=== PATIENT | female | born 1965 | race Caucasian/White ===

== ENCOUNTER 2020-05-22 08:00 | Outpatient (RCR) | payer OTHER, SELFPAY | END 2020-06-18 11:12 | disposition other institution (70) | LOC: HO.PT 08:00 | PROVIDERS: PCP Physician Assistant; Visit Provider Physician Assistant | DX: M54.5 Low back pain (principal); M54.2 Cervicalgia; M25.519 Pain in unspecified shoulder | CPT/HCPCS: 97014; 97110; 97140; 97162 ==

== ENCOUNTER 2020-05-25 12:02 | Emergency (ER) | payer OTHER, SELFPAY ==
--- NOTE | ~2020-05-25 | US_ITS ---
EXAMINATION: US ABDOMEN COMPLETE CLINICAL INFORMATION: Right upper quadrant pain. COMPARISON: None TECHNIQUE: Real-time imaging of the abdominal viscera. FINDINGS: PANCREAS: The pancreas could not be seen as it was obscured by bowel gas. ABDOMINAL AORTA: The proximal and mid segments are normal in caliber. Distal aorta was obscured by bowel gas INFERIOR VENA CAVA: Visualized portions are normal. LIVER: Normal. The liver is normal in size. The liver contour is normal. Parenchymal echogenicity is normal. No focal hepatic lesion. There is no intrahepatic biliary duct dilatation seen. GALLBLADDER: The gallbladder is physiologically distended. Multiple mobile gallstones are present. No evidence of gallbladder wall thickening or pericholecystic fluid. According to the tire adjuster, the patient was tender when palpation was performed with the ultrasound probe over the area of the gallbladder. COMMON BILE DUCT: Normal in caliber measuring 0.4 cm in diameter. RIGHT KIDNEY: No hydronephrosis. No renal calculi or focal parenchymal lesions. The kidney measures 10.5 cm in maximum dimension. LEFT KIDNEY: No hydronephrosis. No renal calculi or focal parenchymal lesions. The kidney measures 10.0 cm in maximum dimension. SPLEEN: Normal. The spleen measures 7.7 cm in maximum dimension. FREE FLUID: None. US/US abdomen complete IMPRESSION: Cholelithiasis with some tenderness over the gallbladder. No gallbladder wall thickening or pericholecystic fluid collections.
[2020-05-25 12:55] VITALS: BP 128/79; PULSE 68; RESP 18; TEMP 36.8; O2SAT 98; BMI 35.1
[2020-05-25 14:27] LABS: MANUAL DIFF FLAG NO
[2020-05-25 14:29] LABS: Basophils Percent Auto 0.5 % (0-2); Eosinophils Absolute Auto 0.2 X10*3/uL (0.0-0.4); Eosinophils Percent Auto 3.4 % (0-4); Hemoglobin 13.9 g/dl (12.0-16.0); Imm Gran Abs Auto 0.01 X10*3/uL (0.00-0.03); Imm Gran Pct Auto 0.2 % (0.0-0.4); Lymphocytes Absolute Auto 1.6 X10*3/uL (1.2-4.9); Lymphocytes Percent Auto 25.4 % (20-40); Mean Corpuscular HGB Conc 33.9 g/dl (31.0-35.0); Mean Corpuscular Hemoglobin 28.5 pg (27.0-33.0); Monocytes Absolute Auto 0.5 X10*3/uL (0.1-1.2); Monocytes Percent Auto 7.6 % (2-11); Neutrophils Absolute Auto 3.9 X10*3/uL (2.0-8.3); Neutrophils Percent Auto 62.9 % (45-73); Platelet Count 249 X10*3/uL (160-400); Red Blood Count 4.88 X10*6/uL (4.20-5.50); Red Cell Distribution Width 12.8 % (11.0-16.0); White Blood Count 6.2 X10*3/uL (4.8-10.8)
[2020-05-25 14:31] VITALS: BP 129/83; PULSE 57; RESP 18; O2SAT 99
--- NOTE | 2020-05-25 14:33 | PC.NURSE ---
pt resting in the stretcher, alert and oriented, skin appropriate for ethnicity, pt reports feeling swollen/bloated in her right flank area.
[2020-05-25 14:35] LABS: Prothrombin Time 12.1 SEC (10.8-13.0)
--- NOTE | 2020-05-25 14:45 | ED.ABDPAIN ---
HPI - Abdominal Pain General Chief Complaint: Recheck/Abnormal Lab/Rx Stated Complaint: abnormal ultrasound Time Seen by Provider: 05/25/20 13:04 Source: patient Mode of arrival: ambulatory Limitations: language barrier (Bangladeshi-speaking) History of Present Illness HPI narrative: 54-year-old female with a past medical history of seizure disorder, Meniere disease, hypothyroidism, hypoglycemia, vertigo, pulmonary nodules, asthma and GERD presenting to the ED with complaints of right upper quadrant/epigastric abdominal pain for the past week with associated nausea/vomiting. Reports that she was seen by her primary care provider and had an outpatient ultrasound and was told that she had multiple gallstones and was instructed to go to [facility]. Patient reports she went to [facility] on 05/23/2020 and sat there for 7 hours and was never seen by provider although had an ultrasound which showed cholecystitis per patient. She reported that because no one came to see her she ended up leaving without being seen. Although she reports she called her primary care provider today and they instructed her from [facility] to come here for further evaluation treatment and admission. MD elicited complaint: abdominal pain Pertinent past history: none Onset (ago): week(s) (One week worse today) Pain Consistency: constant Location: epigastric and RUQ Severity: moderate Quality: aching Radiation: none Migration to: no migration Exacerbating factors: nothing Relieving factors: nothing Associated symptoms: nausea and vomiting Related Data Previous Rx's Medication Instructions Recorded acetaminophen-codeine 1 tab PO Q8H PRN #10 tab 05/25/20 ondansetron HCl [Zofran] 4 mg PO Q8H PRN #14 tab 05/25/20 Allergies Allergy/AdvReac Type Severity Reaction Status Date / Time moxifloxacin [From AVELOX] Allergy Severe ANAPHYLAXIS Verified 05/25/20 13:00 Iodinated Contrast Media Allergy Unknown UNKNOWN Verified 05/25/20 13:00 [IV CONTRAST] naproxen [NAPROXEN] Allergy Unknown VOMITTING Verified 05/25/20 13:00 Review of Systems Review of Systems Constitutional : No Weight loss, No Fever, No Chills, No Night Sweats, No Fatigue, NoMalaise ENT/Mouth: No ear pain, No sore throat, No Difficulty swallowing Cardiovascular : No Chest Pain, No SOB, No Dyspnea on Exertion, No Orthopnea, NoEdema, No Palpitations Respiratory : No Cough, No Sputum, No Wheezing, No Dyspnea Gastrointestinal : + Nausea, + Vomiting, + Abdominal pain, No Diarrhea, No Hematochezia, No Melena Genitourinary : No irregular bleeding, No Dysuria, No Urinary Frequency, No Hematuria,No Urinary Incontinence, No Urgency, No Flank Pain Musculoskeletal : No joint pain, No Myalgias, No Joint Swelling Skin : No Skin Lesions, No rash Neuro : No Weakness, No Numbness, No Paresthesias, No Loss of Consciousness, NoDizziness, No Headache Psych : No Social Issues, Heme/Lymph: No Bruising, No Bleeding,No Lymphadenopathy Endocrine : No Polyuria, No Polydipsia, No Temperature Intolerance Yes all other systems are reviewed and are negative Physical Exam Vital Signs: Vital Signs: Last Vital Signs Temp 98.3 F 05/25/20 12:55 Pulse 57 05/25/20 14:31 Resp 18 05/25/20 14:31 BP 129/83 05/25/20 14:31 Pulse Ox 99 05/25/20 14:31 Body Mass Index 35.1 vital signs have been reviewed as normal and appeared to be correct. Blood pressure normal. Heart rate normal. Respiration rate normal. Temperature normal. Oxygen saturation normal. Appearance: Alert. Oriented X3. No acute distress. Head: Normal external exam. Normocephalic. Eyes: PERRLA. EOMI. Conjunctiva and sclera normal. Eyelids normal. ENT: Pharynx normal. Uvula midline. Moist mucous membranes. No trismus noted. No drooling noted. No muffled voice noted. Neck: Normal inspection. Neck supple. FROM. No adenopathy. No meningeal signs. CVS: Normal heart rate and rhythm. Heart sound normal. No murmurs noted. Pulses normal throughout. Respiratory: No respiratory distress. Painless inspiration. Breath sounds normal. No wheezes/rales/rhonchi noted. Chest nontender. No accessory muscle usage noted or decreased air movement noted. Abdomen: Soft and moderate tenderness to palpation to epigastric/right upper quadrant positive Meade sign.. Nondistended. No guarding. No rigidity. Bowel sounds normal in all 4 quadrants. No distention noted. No organomegaly noted. No visible injury noted. No rebound tenderness. Negative Rovsing sign. Negative obturator's sign. Negative psoas sign. Back: No CVA tenderness. Full range of motion noted. Skin: Skin warm and dry. Normal skin color. Normal skin turgor. No rashes/lesions/lacerations noted. Extremities: Extremities exhibit normal range of motion. Extremities nontender. Neuro: Oriented X 3. No motor deficit. No sensory deficit. Reflexes normal. Course Course Course Narrative: 3:20pm - 54-year-old female with a past medical history of seizure disorder, Meniere disease, hypothyroidism, hypoglycemia, vertigo, pulmonary nodules, asthma and GERD presenting to the ED with complaints of right upper quadrant/epigastric abdominal pain for the past week with associated nausea/vomiting. - on exam patient is alert and oriented x3. Not in any acute distress. Nontoxic appearing. No signs of dehydration. Abdomen is soft although patient with moderate tenderness to right upper quadrant/epigastric abdominal pain with positive Meade sign. - I obtained the ultrasound results from [facility] which revealed cholelithiasis with a positive Meade side negative for cholecystitis. - labs obtained all WNL including lipase. - abdominal ultrasound obtained and revealed cholelithiasis with some tenderness over the gallbladder no gallbladder wall thickening or velvet cholecystic fluid collections - therefore I consulted with Dr. Ryan the general surgeon and she reported that the patient can be sent home with outpatient Zofran and symptomatic treatment along with follow-up appointment on Wednesday in her office. I printed out the report from [facility] and from today's ultrasound and handed to the patient. I called the patient's daughter with the patient at bedside and explained to her what the plan was and they are both agreeable to the plan. Patient is tolerating p.o. fluids/solids. Therefore will DC home with Tylenol with codeine as patient does not want anything stronger and Motrin along with Zofran and instructions to follow-up with Dr. Ryan in the office on Wednesday. The patient also wanted to make healthcare proxy therefore will place a case management and they can call her over the phone for healthcare proxy. Patient understands and agrees with this plan. MDM - Abdominal Pain Medical Records Attestation: I reviewed the patient's medical records. Lab Data Attestation: I reviewed the patient's lab results. Result diagrams: 05/25/20 14:18 05/25/20 14:19 Labs: Lab Results 0205/25/20 05/25/20 Range/Units 14:18 14:18 14:19 WBC 6.2 (4.8-10.8) X10*3/uL RBC 4.88 (4.20-5.50) X10*6/uL Hgb 13.9 (12.0-16.0) g/dl Hct 41.0 (37-47) % MCV 84.0 (80-98) fL MCH 28.5 (27.0-33.0) pg MCHC 33.9 (31.0-35.0) g/dl RDW 12.8 (11.0-16.0) % Plt Count 249 (160-400) X10*3/uL MPV 11.0 (9.4-12.3) fL Immature Gran % (Auto) 0.2 (0.0-0.4) % Neut % (Auto) 62.9 (45-73) % Lymph % (Auto) 25.4 (20-40) % [place] % (Auto) 7.6 (2-11) % Eos % (Auto) 3.4 (0-4) % Baso % (Auto) 0.5 (0-2) % Lymph # (Auto) 1.6 (1.2-4.9) X10*3/uL [place] # (Auto) 0.5 (0.1-1.2) X10*3/uL Eos # (Auto) 0.2 (0.0-0.4) X10*3/uL Baso # (Auto) 0.0 (0.0-0.2) X10*3/uL Abs Immat Gran (auto) 0.01 (0.00-0.03) X10*3/uL Absolute Neuts (auto) 3.9 (2.0-8.3) X10*3/uL Absolute Nucleated RBC 0.000 (0.0-0.012) X10*3/uL Nucleated RBC % (auto) 0.0 (0.0-0.2) /100WBC PT 12.1 (10.8-13.0) SEC INR 1.0 (0.9-1.1) Sodium 143 (135-145) mmol/L Potassium 4.3 (3.3-5.1) mmol/L Chloride 108 (96-108) mmol/L Carbon Dioxide 28 (22-29) mmol/L Anion Gap 11 L (12-20) BUN 12 (9-16) mg/dL Creatinine 0.84 (0.5-1.4) mg/dL Estim Creat Clear Calc 69.4 Estimated GFR > 60 Random Glucose 79 (60-115) mg/dL Calcium 9.2 (8.4-10.2) mg/dL Magnesium 2.3 (1.6-2.6) mg/dL Total Bilirubin 0.4 (0.0-1.0) mg/dL Direct Bilirubin < 0.2 (0.0-0.5) mg/dL AST 16 (5-31) U/L ALT 21 (0-31) U/L Alkaline Phosphatase 79 (39-117) U/L Total Protein 7.0 (6.5-8.0) g/dL Albumin 4.2 (3.5-5.0) g/dL Lipase 31 (8-78) U/L Imaging Data Abdominal ultrasound: Attestation: I personally reviewed and interpreted this imaging study as follows: Radiologist's impression: FINDINGS: PANCREAS: The pancreas could not be seen as it was obscured by bowel gas. ABDOMINAL AORTA: The proximal and mid segments are normal in caliber. Distal aorta was obscured by bowel gas INFERIOR VENA CAVA: Visualized portions are normal. LIVER: Normal. The liver is normal in size. The liver contour is normal. Parenchymal echogenicity is normal. No focal hepatic lesion. There is no intrahepatic biliary duct dilatation seen. GALLBLADDER: The gallbladder is physiologically distended. Multiple mobile gallstones are present. No evidence of gallbladder wall thickening or pericholecystic fluid. According to the chemical preparer, the patient was tender when palpation was performed with the ultrasound probe over the area of the gallbladder. COMMON BILE DUCT: Normal in caliber measuring 0.4 cm in diameter. RIGHT KIDNEY: No hydronephrosis. No renal calculi or focal parenchymal lesions. The kidney measures 10.5 cm in maximum dimension. LEFT KIDNEY: No hydronephrosis. No renal calculi or focal parenchymal lesions. The kidney measures 10.0 cm in maximum dimension. SPLEEN: Normal. The spleen measures 7.7 cm in maximum dimension. FREE FLUID: None. US/US abdomen complete IMPRESSION: Cholelithiasis with some tenderness over the gallbladder. No gallbladder wall thickening or pericholecystic fluid collections. Discharge Plan Discharge Clinical Impression: Cholelithiasis Patient Disposition: Home, Self-Care Instructions: Gallstones (ED), Laparoscopic Cholecystectomy (DC), Open Cholecystectomy (DC) Prescriptions: New ondansetron HCl [Zofran] 4 mg tablet 4 mg PO Q8H PRN (Reason: nausea and vomiting) Qty: 14 RF: 0 acetaminophen-codeine 300-30 mg tablet 1 tab PO Q8H PRN (Reason: pain) Qty: 10 RF: 0 Referrals: Gilma Napier MD [Physician] - 3 days (Call on Wednesday to make an appointment; [facility] [facility] [employer] [facility]) Print Language: Bangladeshi [facility] Past Medical History Attestation statement: The following information was validated with the patient. Medical History Asthma GERD (gastroesophageal reflux disease) H/O multiple pulmonary nodules H/O vertigo Hypoglycemia Hypothyroid Meniere disease Seizure disorder Social History Social History Smoking Status: Never smoker Use of substances other than those prescribed or required for medical reasons: No Advance Directives: No Advance Directives Information Provided: Yes
[2020-05-25 15:02] LABS: Alanine Aminotransferase 21 U/L (0-31); Albumin Level 4.2 g/dL (3.5-5.0); Alkaline Phosphatase 79 U/L (39-117); Anion Gap 11 (12-20); Aspartate Amino Transferase 16 U/L (5-31); Bilirubin Direct < 0.2 mg/dL (0.0-0.5); Bilirubin Total 0.4 mg/dL (0.0-1.0); Blood Urea Nitrogen 12 mg/dL (9-16); Calcium 9.2 mg/dL (8.4-10.2); Carbon Dioxide 28 mmol/L (22-29); Chloride 108 mmol/L (96-108); Creatinine Clr Calc Pharmacy 69.4; Estimated Glomerular Filt Rate > 60; Glucose Random 79 mg/dL (60-115); Lipase 31 U/L (8-78); Magnesium 2.3 mg/dL (1.6-2.6); Potassium 4.3 mmol/L (3.3-5.1); Sodium 143 mmol/L (135-145)
[2020-05-25 15:21] LABS: Glucose Urine UA NEG (NEG); Leukocyte Esterase Urine TRACE (NEG); Nitrite Urine NEG (NEG); UACC Culture Trigger YES; Urine Blood NEG (NEG); Urine Ketones NEG (NEG); Urine Protein NEG (NEG-TRACE)
[2020-05-25 15:29] LABS: Appearance Urine CLEAR; Color Urine YELLOW
[2020-05-25 15:49] LABS: RBC Urine 0-2 /HPF (0); Squamous Epithelial Cell Urine 3+ /LPF; WBC Urine 0-2 /HPF (0-4)
== END 2020-05-25 15:40 | disposition home or self-care (01) ==
PROVIDERS: Physician Assistant Medical; Emergency Provider Emergency Medicine Emergency Medical Services; PCP Physician Assistant
DX: K80.20 Calculus of gallbladder without cholecystitis without obstruction (principal)
CPT/HCPCS: 36415; 76700; 80048; 80076; 81001; 81003; 83690; 83735; 85025; 85610; 87086; 99284

== ENCOUNTER → 2020-05-28 15:10 | Outpatient (BNVA) | payer OTHER, SELFPAY | PROVIDERS: PCP Internal Medicine; Visit Provider Surgery | DX: K80.20 Calculus of gallbladder without cholecystitis without obstruction (principal) | CPT/HCPCS: 99202 ==

== ENCOUNTER 2020-05-29 | Outpatient (REF) | payer OTHER, SELFPAY | END 2020-05-29 00:01 | disposition home or self-care (01) | LOC: HO.XRAY | PROVIDERS: Visit Provider Surgery | DX: Z01.818 Encounter for other preprocedural examination (principal); R06.02 Shortness of breath | CPT/HCPCS: 71046 ==

== ENCOUNTER 2020-06-05 06:02 | Day surgery (SDC) | payer OTHER, SELFPAY ==
--- NOTE | 2020-05-29 11:59 | ECG_ITS ---
Test Reason : SOB Blood Pressure : / mmHG Vent. Rate : 055 BPM Atrial Rate : 055 BPM P-R Int : 126 ms QRS Dur : 082 ms QT Int : 404 ms P-R-T Axes : 027 037 039 degrees QTc Int : 386 ms Sinus bradycardia Otherwise normal ECG When compared with ECG of 15-AUG-2018 17:41, No significant change was found Referred By: Gilma Napier Electronically Signed By:Juan Clark
[2020-05-29 12:55] LABS: Glucose Urine UA NEG (NEG); Leukocyte Esterase Urine NEG (NEG); Nitrite Urine NEG (NEG); PH 5.5 (5.0-8.0); Urine Blood TRACE (NEG); Urine Ketones NEG (NEG); Urine Protein NEG (NEG-TRACE)
[2020-05-29 12:58] LABS: Appearance Urine CLEAR; Color Urine YELLOW
[2020-05-29 13:10] LABS: RBC Urine 0-2 /HPF (0); Squamous Epithelial Cell Urine 1+ /LPF
[2020-05-29 13:11] LABS: Prothrombin Time 12.1 SEC (10.8-13.0)
[2020-05-29 13:14] LABS: Partial Thromboplastin Time 37.3 SEC (24.1-38.0)
[2020-05-30 10:39] VITALS: BMI 32.3
--- NOTE | 2020-06-04 11:05 | P.CONAN_ITS ---
Documented by User: Shi Marya 06/04/20 11:08 HPI - Anesthesia Eval Consult details Narrative: 54yo F for Cholecystectomy Laparoscopic PMFSH Active Problems Active Problems: All Active Problems (Updated 05/30/20 @ 10:50 by Lorelei Branham) Cholelithiasis (Acute) Preoperative examination (Acute) Shortness of breath (Acute) Seizure disorder (Acute) Meniere disease (Acute) Hypothyroid (Acute) Hypoglycemia (Acute) H/O vertigo (Acute) H/O multiple pulmonary nodules (Acute) GERD (gastroesophageal reflux disease) (Acute) Asthma (Acute) Past Medical History Medical History Anxiety and depression Asthma Difficulty maintaining body in lying position GERD (gastroesophageal reflux disease) H/O multiple pulmonary nodules H/O vertigo Hypoglycemia Hypothyroid Low back pain Meniere disease Nausea Neck pain Panic attacks Seizure disorder Family History Family History Father Hypertension High cholesterol Dementia Blind Mother Hypertension Diabetes mellitus High cholesterol Chronic kidney disease Sister Hypertension Diabetes mellitus Hx laparoscopic cholecystectomy Asthma Sister High cholesterol Hypertension FH: kidney cancer Sister Vertigo Brother No problems noted. Brother Brain tumor Epilepsia Daughter Hypoglycemia Vertigo Asthma Meniere disease Son Asthma Migraine Gastritis Surgical History Surgical History Hx of appendectomy Hx of section Social History Social History Alcohol intake: never Smoking Status: Never smoker Use of substances other than those prescribed or required for medical reasons: No Advance Directives: No Advance Directives Information Provided: No Advance Directives on File: No Meds Allergies Allergy/AdvReac Type Severity Reaction Status Date / Time Iodinated Contrast Media Allergy Severe Anaphylaxis Verified 06/05/20 06:30 [IV CONTRAST] moxifloxacin [From AVELOX] Allergy Severe ANAPHYLAXIS Verified 06/05/20 06:30 naproxen [NAPROXEN] Allergy Severe VOMITTING Verified 06/05/20 06:30 Home Medications Medication Instructions Recorded Confirmed Last Taken Type albuterol sulfate 2.5 mg INHALATION Q4-6H PRN 05/28/20 05/30/20 Unknown History albuterol sulfate 90 mcg/actuation 2 puff INHALATION Q4H PRN 05/28/20 05/30/20 Unknown History aerosol inhaler blood sugar diagnostic #10 ea 05/28/20 05/28/20 Unknown History clonazepam 0.5 mg tablet 0.5 mg PO BEDTIME PRN 05/28/20 05/30/20 Unknown History dicyclomine 20 mg tablet 20 mg PO Q8H 05/28/20 05/30/20 Unknown History levetiracetam 500 mg tablet 500 mg PO BID 05/28/20 05/30/20 06/05/20 05:30 History levothyroxine 50 mcg tablet 50 mcg PO DAILY 05/28/20 05/30/20 Unknown History lorazepam 1 mg tablet 1 mg PO DAILY PRN 05/28/20 05/30/20 Unknown History meclizine 12.5 mg tablet 12.5 mg PO DAILY PRN 05/28/20 05/30/20 Unknown History mirtazapine 15 mg tablet 15 mg PO BEDTIME 05/28/20 05/30/20 Unknown History omeprazole 20 mg capsule,delayed 20 mg PO DAILY 05/28/20 05/30/20 Unknown History release amitriptyline 1 tab PO BEDTIME 06/05/20 06/05/20 Unknown History diclofenac sodium 1 g TOPICAL BID 06/05/20 06/05/20 Unknown History hydroxyzine HCl tab PO 06/05/20 06/05/20 Unknown History ibuprofen 600 mg PO TID 06/05/20 06/05/20 Unknown History methocarbamol 1 tab PO TID PRN 06/05/20 06/05/20 Unknown History Exam Exam Date and Time: June 04, 2020 1105 Height,Weight and Vital Signs: Height 4 ft 11 in Weight 72.575 kg Pertinent Lab Results Pertinent Lab Results: Laboratory Tests 05/29/20 05/29/20 05/29/20 12:07 12:15 Unknown PT 12.1 INR 1.0 APTT 37.3 Urine Color YELLOW Urine Appearance CLEAR Urine pH 5.5 Ur Specific [place] 1.010 Urine Protein NEG Urine Glucose (UA) NEG Urine Ketones NEG Urine Blood TRACE Urine Nitrite NEG Ur Leukocyte Esterase NEG Urine RBC 0-2 Urine WBC 1-4 Ur Squamous Epith Cells 1+ Urine Bacteria NONE Blood Type A Positive Antibody Screen NEGATIVE Laboratory Tests 05/25/20 05/25/20 14:18 14:19 WBC 6.2 Hgb 13.9 Hct 41.0 Plt Count 249 Sodium 143 Potassium 4.3 Chloride 108 Carbon Dioxide 28 BUN 12 Creatinine 0.84 Narrative Narrative: EKG 05/28/20 Sinus bradycardia Otherwise normal ECG When compared with ECG of 15-AUG-2018 17:41, No significant change was found Assessment and Plan Assessment Anesthesia Assessment: Chart Reviewed Documented by User: Lorena Berman 06/05/20 07:35 PMFSH Past Medical History Medical History Anxiety and depression Asthma Difficulty maintaining body in lying position GERD (gastroesophageal reflux disease) H/O multiple pulmonary nodules H/O vertigo Hypoglycemia Hypothyroid Low back pain Meniere disease Nausea Neck pain Panic attacks Seizure disorder Family History Family History Father Hypertension High cholesterol Dementia Blind Mother Hypertension Diabetes mellitus High cholesterol Chronic kidney disease Sister Hypertension Diabetes mellitus Hx laparoscopic cholecystectomy Asthma Sister High cholesterol Hypertension FH: kidney cancer Sister Vertigo Brother No problems noted. Brother Brain tumor Epilepsia Daughter Hypoglycemia Vertigo Asthma Meniere disease Son Asthma Migraine Gastritis Family history of problems with anesthesia: No Surgical History Surgical History Hx of appendectomy Hx of section History of Problems with Anesthesia: No Social History Social History Alcohol intake: never Smoking Status: Never smoker Use of substances other than those prescribed or required for medical reasons: No Advance Directives: No Advance Directives Information Provided: No Advance Directives on File: No Meds Allergies Allergy/AdvReac Type Severity Reaction Status Date / Time Iodinated Contrast Media Allergy Severe Anaphylaxis Verified 06/05/20 06:30 [IV CONTRAST] moxifloxacin [From AVELOX] Allergy Severe ANAPHYLAXIS Verified 06/05/20 06:30 naproxen [NAPROXEN] Allergy Severe VOMITTING Verified 06/05/20 06:30 Home Medications Medication Instructions Recorded Confirmed Last Taken Type albuterol sulfate 2.5 mg INHALATION Q4-6H PRN 05/28/20 05/30/20 Unknown History albuterol sulfate 90 mcg/actuation 2 puff INHALATION Q4H PRN 05/28/20 05/30/20 Unknown History aerosol inhaler blood sugar diagnostic #10 ea 05/28/20 05/28/20 Unknown History clonazepam 0.5 mg tablet 0.5 mg PO BEDTIME PRN 05/28/20 05/30/20 Unknown History dicyclomine 20 mg tablet 20 mg PO Q8H 05/28/20 05/30/20 Unknown History levetiracetam 500 mg tablet 500 mg PO BID 05/28/20 05/30/20 06/05/20 05:30 History levothyroxine 50 mcg tablet 50 mcg PO DAILY 05/28/20 05/30/20 Unknown History lorazepam 1 mg tablet 1 mg PO DAILY PRN 05/28/20 05/30/20 Unknown History meclizine 12.5 mg tablet 12.5 mg PO DAILY PRN 05/28/20 05/30/20 Unknown History mirtazapine 15 mg tablet 15 mg PO BEDTIME 05/28/20 05/30/20 Unknown History omeprazole 20 mg capsule,delayed 20 mg PO DAILY 05/28/20 05/30/20 Unknown History release amitriptyline 1 tab PO BEDTIME 06/05/20 06/05/20 Unknown History diclofenac sodium 1 g TOPICAL BID 06/05/20 06/05/20 Unknown History hydroxyzine HCl tab PO 06/05/20 06/05/20 Unknown History ibuprofen 600 mg PO TID 06/05/20 06/05/20 Unknown History methocarbamol 1 tab PO TID PRN 06/05/20 06/05/20 Unknown History Exam Height,Weight and Vital Signs: Vital Signs Temp Pulse Resp BP Pulse Ox 06/05/20 06:31 97.8 F 64 16 112/89 99 Pertinent Lab Results Pertinent Lab Results: POC 06/05/2020: 79 Airway Mallampati Class: II TM Dist: >3cm Neck ROM: Full Loose/Missing/Broken Teeth: No (?Veneers ) Heart: RRR Lungs: CTAB Assessment and Plan Assessment Anesthesia Assessment: Anesthesia Plan Discussed and Chart Reviewed Final Anesthetic Review NPO: Yes ASA Class: III Final Preanesthetic Review: No Changes in Pt Med Stat, Meds/Allgs Chart Reviewed, Consent Obtained/Reviewed and Anes Risks/Benef Reviewed Patient Risk: Intermediate Procedure Risk: Intermediate Assessment/Block/Sedation in SS: Assess/Block/Sedation-SS Anesthetic Plan Anesthetic Plan: GA (Does not want 'strong' pain medications. 'Afraid' of them. Tylenol with codeine ok but does not want percocet. ) Disposition: Standard PACU
--- NOTE | 2020-06-04 16:21 | MHC.SHP ---
Pre-Procedural Eval Section B Chief Complaint: calculus of gallbladder Allergies: Allergies Allergy/AdvReac Type Severity Reaction Status Date / Time Iodinated Contrast Media Allergy Severe Anaphylaxis Verified 05/30/20 10:34 [IV CONTRAST] moxifloxacin [From AVELOX] Allergy Severe ANAPHYLAXIS Verified 05/30/20 10:34 naproxen [NAPROXEN] Allergy Severe VOMITTING Verified 05/30/20 10:34 Plan I have reviewed the history and physical and performed a pertinent physical examination on my patient. No changes have occurred unless specified.
[2020-06-05] VITALS (18 sets, daily range): BP systolic 112–153; BP diastolic 59–106; PULSE 63–94; RESP 16–18; TEMP 36–36.9; O2SAT 93–99
--- NOTE | ~2020-06-05 | XR_ITS ---
EXAMINATION: XR CHEST CLINICAL INFORMATION: Shortness of breath COMPARISON: Chest radiographs 08/15/2018, 09/27/2017 TECHNIQUE: 2 views of the chest were obtained. FINDINGS: The lungs are clear. The vascularity is normal. The heart is normal in size. There is no airspace consolidation, groundglass opacity, or effusion. No pneumothorax or pleural reaction. The hilar and mediastinal contours are unremarkable. No visible acute bony abnormality. XR/XR chest 2V IMPRESSION: Lungs clear.
[2020-06-05] MEDS: Lactated Ringers 1,000 ML 100 ML IVCONT (06:54)
[2020-06-05 07:00] LABS: COVID-19 Test Negative (Negative)
[2020-06-05 07:30] LABS: Glucose, Whole Blood 79 mg/dL (60-115)
[2020-06-05] MEDS: fentaNYL citrate/PF 100 MCG/2 ML VIAL 25 MCG IVPUSH ×3 (09:42→09:57)
--- NOTE | 2020-06-05 09:47 | PM.OP ---
Brief Operative Note Date of Service: 06/05/20 Pre-op diagnosis: Cholelithiasis, biliary colic Post-op diagnosis: same Procedure: Laparoscopic cholecystectomy Implants: Surgical clips Surgeon: Gilma Napier MD Anesthesia: GETA [employer] Specialist: Lesvia Lujan Estimated blood loss (mL): 50 Pathology: other (Gallbladder) Condition: stable Disposition: PACU
--- NOTE | 2020-06-05 09:48 | W.PM.OPN ---
Operative Note Operative Note Date of Service: 06/05/20 Narrative: Patient was brought into the operating room, placed on operating table in the supine position. Normal DVT prophylaxis was instituted. Patient received 2 g of IV cefotetan preoperatively. General anesthesia was induced. The abdomen was prepped and draped in the normal sterile fashion using ChloraPrep. A safety time-out was performed. Next a mixture of 1% lidocaine with epinephrine and 0.25% Marcaine plain was used to anesthetize the planned incision site in the infraumbilical position. A 11. Scalpel was used to make a 2 cm infraumbilical transverse surgical incision through which the subcutaneous tissues were dissected down to level the fascia. The fascia was grasped did between 2 Tito clamps and entered using a 11. Scalpel for about 1 cm vertically. An 0 Vicryl suture was placed on either side of the open fascia. A finger was used to bluntly gain access to the intra-abdominal cavity. A 12 mm Lockwood trocar was introduced into the abdomen and secured to the abdominal wall using sutures on the fascia. The abdomen was insufflated to 15 mmHg. Next a 5 mm 30 degree laparoscoped was introduced into the abdomen and used to survey the abdominal cavity which was normal. Next 3 additional 5 mm ports were placed. One port was placed in the epigastrium to the right of the falciform ligament, 2 ports were placed in the right upper quadrant 1 laterally and 1 more medially. The patient was placed in reverse Trendelenburg and left side tilted down. A grasper was placed through the right lateral port and used to grasp the fundus of the gallbladder and retracted it cephalad. Another grasper was used to grasp the infundibulum of the gallbladder retracted inferior and laterally. We cleared the cystic artery and cystic duct circumferentially and the distal 1/3 of the gallbladder with the gallbladder fossa. This gave us the critical view of safety. We then placed 3 clips on the cystic duct distal to the gallbladder 1 clip on the cystic duct proximal to the gallbladder. We placed 1 clip on the cystic artery proximal to the gallbladder and 3 clips on the cystic artery distal to the gallbladder and transected both structures in between clips. We took the remainder of the gallbladder off the gallbladder fossa and placed in Endo-Catch bag and removed it from the abdomen. We then evaluated the gallbladder fossa it was hemostatic there was no evidence of any bile draining or any bleeding noted. The clips were in place on the cystic artery and cystic duct stumps. We then removed the 5 mm ports under direct vision there was no bleeding noted from these port sites. We desufflated the abdomen through the last remaining port and removed the last port and laparoscope. We reapproximated the fascial defect at the umbilicus using a [id number] 0 Vicryl suture and tied the original fascial sutures over that closure. There was no residual fascial defect. We placed an additional amount of local anesthetic into the fascia closure site. We closed all skin incisions with a 4 Monocryl subcuticular stitch. We cleaned and dried the skin and applied Dermabond skin glue to all skin incisions. All counts were correct at the end the case there were no complications. The patient was awake and in stable condition prior to extubation and transfer to the recovery room.
[2020-06-05] MEDS: traMADoL HCL 50 MG TABLET PO (10:24)
[2020-06-05] MEDS: ondansetron HCL 4 MG/2 ML VIAL IVPUSH (10:31)
[2020-06-05 11:05] LABS: Glucose, Whole Blood 125 mg/dL (60-115)
--- NOTE | 2020-06-05 12:26 | PC.NURSE ---
Patient has Tylenol with Codeine at home per report. Discharge instructions [place] [facility] [place]
== END 2020-06-05 12:28 | disposition home or self-care (01) ==
PROVIDERS: PCP Physician Assistant; Visit Provider Surgery
PROC: 0FT44ZZ Resection of Gallbladder, Percutaneous Endoscopic Approach (ICD-10-PCS; CPT 47562; principal; 2020-06-05 07:30)
DX: K80.10 Calculus of gallbladder with chronic cholecystitis without obstruction (principal); R06.02 Shortness of breath; E16.2 Hypoglycemia, unspecified; G40.909 Epilepsy, unspecified, not intractable, without status epilepticus; Z79.899 Other long term (current) drug therapy; Z88.8 Allergy status to other drugs, medicaments and biological substances
CPT/HCPCS: 47562; 36415; 81001; 82947; 85610; 85730; 86850; 86900; 86901; 87635; 88304; 93005; J0131; J1100; J2250; J2370; J2405; J3010

== ENCOUNTER → 2020-06-20 12:59 | Outpatient (BNVA) | payer OTHER, SELFPAY | PROVIDERS: PCP Physician Assistant; Visit Provider Surgery | DX: Z90.49 Acquired absence of other specified parts of digestive tract (principal) | CPT/HCPCS: 99212 ==

== ENCOUNTER 2020-07-30 11:00 | Outpatient (RCR) | payer OTHER, SELFPAY | END 2020-10-02 09:06 | disposition other institution (70) | LOC: HO.PT 11:00 | PROVIDERS: PCP Physician Assistant; Visit Provider Physician Assistant Medical | DX: M54.2 Cervicalgia (principal); M54.9 Dorsalgia, unspecified; M25.512 Pain in left shoulder; M25.511 Pain in right shoulder | CPT/HCPCS: 97110; 97140; 97162 ==

== ENCOUNTER 2021-01-24 17:14 | Emergency (ER) | payer OTHER, SELFPAY | END 2021-01-24 21:00 | disposition left against medical advice (07) | LOC: HO.ED 20:57 | PROVIDERS: Emergency Provider Emergency Medicine; PCP Internal Medicine | DX: G89.18 Other acute postprocedural pain (principal) ==

== ENCOUNTER 2021-01-25 08:44 | Emergency (ER) | payer OTHER, SELFPAY ==
--- NOTE | ~2021-01-25 | CT_ITS ---
CT/CT abdomen pelvis wo con IMPRESSION: 1. Mesenteric haziness demonstrated within the mid left abdomen with a few associated mildly prominent lymph nodes. This is a nonspecific finding but most suggestive of mesenteric panniculitis. Clinical correlation recommended. 2. Diffusely decreased liver attenuation suggesting hepatic steatosis. Correlation with liver enzymes recommended. EXAMINATION: CT ABDOMEN AND PELVIS WITHOUT CONTRAST CLINICAL INFORMATION: 55-year-old female with right-sided flank pain. COMPARISON: Abdominal ultrasound May 25, [address] abdomen pelvis July 16, 2018 TECHNIQUE: Multidetector volumetric imaging was performed from the superior aspect of the liver through the pubic symphysis. Sagittal and coronal reformatted images were obtained on the technologist's workstation. This CT examination was performed using dose optimization techniques as appropriate, variously including the following: *Automated exposure control *Adjustment of mA and/or kV according to patient size (this includes techniques or standardized protocols for targeted exams where dose is matched to indication/reason for exam; i.e. extremities or head) *Use of iterative reconstruction technique DLP: 648 mGy-cm FINDINGS: Visualized lung bases demonstrate mild dependent patchy opacities, felt to represent atelectasis. The liver is normal in size but demonstrates diffusely decreased attenuation suggesting hepatic steatosis. The gallbladder is surgically absent. The pancreas, spleen and adrenal glands are unremarkable. Small splenule again identified. Symmetrically sized kidneys. No renal calculi or hydronephrosis bilaterally. There is mild yassine mesentery involving the left hemiabdomen with a few mildly prominent lymph nodes, nonspecific. Small fat-containing umbilical hernia is unchanged. Normal caliber abdominal aorta. No retroperitoneal lymphadenopathy. The bladder is normal in appearance. Unremarkable CT appearance of the uterus. No gross free pelvic fluid. No inguinal lymphadenopathy. Mild diffuse degenerative changes of the spine.
[2021-01-25 09:04] VITALS: BP 146/87; PULSE 71; RESP 16; TEMP 36.7; O2SAT 99; BMI 30.4
--- NOTE | 2021-01-25 09:25 | ED_ITS ---
HPI - Abdominal Pain General Chief Complaint: Abdominal Pain Stated Complaint: R SIDE PAIN Time Seen by Provider: 01/25/21 09:21 Source: patient and family (Daughter) Mode of arrival: ambulatory Limitations: no limitations History of Present Illness HPI narrative: 55-year-old female came in for evaluation of right flank pain. Symptoms started since yesterday after had lunch with right flank pain described as constant pain since yesterday radiating to the front of her right upper quadrant area. Pain was described as constant, severe 01/19 patient needed to take ibuprofen and left over of oxycodone at home, no relieving factors, no aggravating factors. Patient stated pain is similar when she had her acute ch olecystitis. No dysuria, no frequency urination, no blood in the urine. Patient had history of cholecystectomy 8 months ago, and remote appendectomy. No nausea, no vomiting, no diarrhea. No fever, no chills. Related Data Home Medications Medication Instructions Recorded Confirmed albuterol sulfate 2.5 mg INHALATION Q4-6H PRN 05/28/20 06/20/20 albuterol sulfate 90 mcg/actuation 2 puff INHALATION Q4H PRN 05/28/20 06/20/20 aerosol inhaler blood sugar diagnostic #10 ea 05/28/20 06/20/20 clonazepam 0.5 mg tablet 0.5 mg PO BEDTIME PRN 05/28/20 06/20/20 dicyclomine 20 mg tablet 20 mg PO Q8H 05/28/20 06/20/20 levetiracetam 500 mg tablet 500 mg PO BID 05/28/20 06/20/20 levothyroxine 50 mcg tablet 50 mcg PO DAILY 05/28/20 06/20/20 lorazepam 1 mg tablet 1 mg PO DAILY PRN 05/28/20 06/20/20 meclizine 12.5 mg tablet 12.5 mg PO DAILY PRN 05/28/20 06/20/20 mirtazapine 15 mg tablet 15 mg PO BEDTIME 05/28/20 06/20/20 omeprazole 20 mg capsule,delayed 20 mg PO DAILY 05/28/20 06/20/20 release amitriptyline 25 mg tablet 1 tab PO BEDTIME 06/05/20 06/20/20 diclofenac sodium 1 % topical gel 1 g TOPICAL BID 06/05/20 06/20/20 hydroxyzine HCl 25 mg tablet tab PO 06/05/20 06/20/20 ibuprofen 600 mg tablet 600 mg PO TID 06/05/20 06/20/20 methocarbamol 500 mg tablet 1 tab PO TID PRN 06/05/20 06/20/20 Previous Rx's Medication Instructions Recorded ondansetron HCl 4 mg tablet 4 mg PO Q8H PRN #14 tab 05/25/20 (Zofran) docusate sodium 100 mg capsule 100 mg PO BID #60 cap 06/05/20 (Colace) oxycodone 5 mg tablet 5 mg PO Q8H PRN #25 tab 06/05/20 nystatin 100,000 unit/mL oral 100,000 unit PO BID 7 Days #14 ml 06/11/20 suspension cefuroxime axetil 250 mg tablet 250 mg PO BID #14 tab 01/25/21 Allergies Allergy/AdvReac Type Severity Reaction Status Date / Time Iodinated Contrast Media Allergy Severe Anaphylaxis Verified 06/20/20 14:14 [IV CONTRAST] moxifloxacin [From AVELOX] Allergy Severe ANAPHYLAXIS Verified 06/20/20 14:14 naproxen [NAPROXEN] Allergy Severe VOMITTING Verified 06/20/20 14:14 Review of Systems Review of Systems All other systems are reviewed and are negative Constitutional: Reports as per HPI and Reports no additional constitutional complaints Eyes: Reports as per HPI and Reports no additional eye complaints Reports system reviewed and no additional complaints, except as documented Cardiovascular: Reports as per HPI and Reports no additional cardiovascular complaints Respiratory: Reports as per HPI and Reports no additional respiratory complaints Gastrointestinal: Reports as per HPI and Reports no additional gastrointestinal complaints Genitourinary: Reports no additional female genitourinary complaints Musculoskeletal: Reports no additional musculoskeletal complaints Skin/Breast: Reports system reviewed and no additional complaints, except as docu Psychiatric: Reports no additional psychiatric complaints Endocrine: Reports no additional endocrine complaints Hematologic/Lymphatic: Reports no additional hematologic/lymphatic complaints Allergic/Immunologic: Reports no additional allergic/immunologic complaints Reports system reviewed and no additional complaints, except as documented and Reports Abnormal speech present Physical Exam Vital Signs: Vital Signs: Last Vital Signs Temp 98.1 F 01/25/21 09:04 Pulse 58 01/25/21 10:00 Resp 18 01/25/21 10:00 BP 117/71 01/25/21 10:00 Pulse Ox 97 01/25/21 10:00 Body Mass Index 30.4 Vital signs have been reviewed as appeared to be correct. Blood pressure normal. Heart rate normal. Respiration rate normal. Temperature normal. Oxygen saturation normal. Appearance: Alert. Oriented X3. No acute distress. Head: Normal external exam. Normocephalic. Atraumatic. No Felix signs noted. No raccoon eyes noted Eyes: PERRLA. EOMI. Conjunctiva and sclera normal. Eyelids normal. ENT: TM's Normal. Pharynx normal. Uvula midline. Moist mucous membranes. No trismus noted. No drooling noted. No muffled voice noted. Neck: Normal inspection. Neck supple. FROM. No adenopathy. Thyroid Normal. No meningeal signs. No neck mass noted. CVS: Normal heart rate and rhythm. Heart sound normal. No murmurs noted. Pulses normal throughout. Respiratory: No respiratory distress. Painless inspiration. Breath sounds normal. No wheezes/rales/rhonchi noted. Chest nontender. No accessory muscle usage noted or decreased air movement noted. Abdomen: Soft, mild right upper quadrant tenderness, no rebound, no guarding. Bowel sounds normal in all 4 quadrants. No distention noted. No organomegaly noted. No visible injury noted. Back: Right CVA tenderness. Full range of motion noted. Skin: Skin warm and dry. Normal skin color. Normal skin turgor. No rashes/lesions/lacerations noted. Extremities: No lower extremity edema. Extremities exhibit normal range of mot ion. Extremities nontender. Neuro: Oriented X 3. Cranial nerve exam: II-XII are grossly intact No motor deficit. No sensory deficit. Reflexes normal. Course Course Course Narrative: Assessment and plan. 55-year-old female came in with right-sided abdominal pain for 1 day. Patient declined any nausea, vomiting, diarrhea, or fever. CT of the abdomen pelvis showed nonspecific lymphadenitis, patient was instructed to use NSAIDs if needed. Patient is only complaining of urinary frequency but no dysuria or urine older, UA show mild UTI will start the patient on cefuroxime 250 mg b.i.d. for 1 week, patient was instructed to drink plenty of fluids. MDM - Abdominal Pain Lab Data Attestation: I reviewed the patient's lab results. Result diagrams: 01/25/21 09:46 01/25/21 09:46 Labs: Lab Results 01/25/21 01/25/21 01/25/21 Range/Units 09:46 09:46 09:48 WBC 6.1 (4.8-10.8) X10*3/uL RBC 4.38 (4.20-5.50) X10*6/uL Hgb 12.6 (12.0-16.0) g/dl Hct 37.2 (37-47) % MCV 84.9 (80-98) fL MCH 28.8 (27.0-33.0) pg MCHC 33.9 (31.0-35.0) g/dl RDW 12.8 (11.0-16.0) % Plt Count 218 (160-400) X10*3/uL MPV 11.4 (9.4-12.3) fL Immature Gran % (Auto) 0.2 (0.0-0.4) % Neut % (Auto) 55.3 (45-73) % Lymph % (Auto) 27.1 (20-40) % Mitchell % (Auto) 11.9 H (2-11) % Eos % (Auto) 5.0 H (0-4) % Baso % (Auto) 0.5 (0-2) % Lymph # (Auto) 1.6 (1.2-4.9) X10*3/uL Mitchell # (Auto) 0.7 (0.1-1.2) X10*3/uL Eos # (Auto) 0.3 (0.0-0.4) X10*3/uL Baso # (Auto) 0.0 (0.0-0.2) X10*3/uL Abs Immat Gran (auto) 0.01 (0.00-0.03) X10*3/uL Absolute Neuts (auto) 3.4 (2.0-8.3) X10*3/uL Absolute Nucleated RBC 0.000 (0.0-0.012) X10*3/uL Nucleated RBC % (auto) 0.0 (0.0-0.2) /100WBC Sodium 141 (135-145) mmol/L Potassium 4.9 (3.3-5.1) mmol/L Chloride 111 H (96-108) mmol/L Carbon Dioxide 23 (22-29) mmol/L Anion Gap 12 (12-20) BUN 13 (9-16) mg/dL Creatinine 0.78 (0.5-1.4) mg/dL Estim Creat Clear Calc 68.5 Estimated GFR > 60 Random Glucose 94 (60-115) mg/dL Calcium 8.9 (8.4-10.2) mg/dL Total Bilirubin 0.4 (0.0-1.0) mg/dL Direct Bilirubin < 0.2 (0.0-0.5) mg/dL AST 23 D (5-31) U/L ALT 22 (0-31) U/L Alkaline Phosphatase 70 (39-117) U/L Total Protein 6.3 L (6.5-8.0) g/dL Albumin 3.7 (3.5-5.0) g/dL Lipase 33 (8-78) U/L Urine Color YELLOW Urine Appearance HAZY Urine pH 6.0 (5.0-8.0) Ur Specific Yoder 1.020 (1.005-1.025) Urine Protein NEG (NEG-TRACE) MG/DL Urine Glucose (UA) NEG (NEG) MG/DL Urine Ketones NEG (NEG) MG/DL Urine Blood NEG (NEG) Urine Nitrite NEG (NEG) Ur Leukocyte Esterase 2+ H (NEG) Urine RBC 0 (0) /HPF Urine WBC 10-14 H (0-4) /HPF Ur Squamous Epith Cells TRACE /LPF Ur Renal Epithelial Cell 1+ /LPF Urine Bacteria NONE /LPF Imaging Data CT scan - abdomen: Radiologist's impression: 1.? Mesenteric haziness demonstrated within the mid left abdomen with a few associated mildly prominent lymph nodes. This is a nonspecific finding but most suggestive of mesenteric panniculitis. Clinical correlation recommended. 2.? Diffusely decreased liver attenuation suggesting hepatic steatosis. Correlation with liver enzymes recommended.? Discharge Plan Discharge Clinical Impression: Mesenteric panniculitis Urinary tract infection Qualifiers: Urinary tract infection type: acute cystitis Hematuria presence: without hematuria Qualified Code(s): N30.00 - Acute cystitis without hematuria Patient Disposition: Home, Self-Care Instructions: Urinary Tract Infection in Women (ED), Mesenteric Adenitis (ED) Prescriptions: New cefuroxime axetil 250 mg tablet 250 mg PO BID Qty: 14 RF: 0 No Action oxycodone 5 mg tablet 5 mg PO Q8H PRN (Reason: pain) Qty: 25 RF: 0 nystatin 100,000 unit/mL suspension 100,000 unit PO BID 7 Days Qty: 14 RF: 0 methocarbamol 500 mg tablet 1 tab PO TID PRN (Reason: muscle spasm) RF: 0 amitriptyline 25 mg tablet 1 tab PO BEDTIME RF: 0 hydroxyzine HCl 25 mg tablet PO RF: 0 ibuprofen 600 mg Tablet 600 mg PO TID RF: 0 diclofenac sodium 1 % gel 1 g topical BID RF: 0 docusate sodium [Colace] 100 mg capsule 100 mg PO BID Qty: 60 RF: 0 ondansetron HCl [Zofran] 4 mg tablet 4 mg PO Q8H PRN (Reason: nausea and vomiting) Qty: 14 RF: 0 levothyroxine 50 mcg tablet 50 mcg PO DAILY RF: 0 omeprazole 20 mg capsule,delayed release(DR/EC) 20 mg PO DAILY RF: 0 meclizine 12.5 mg tablet 12.5 mg PO DAILY PRN (Reason: Vertigo) RF: 0 albuterol sulfate 90 mcg/actuation HFA aerosol inhaler 2 puff inhalation Q4H PRN (Reason: wheezing) RF: 0 levetiracetam 500 mg tablet 500 mg PO BID RF: 0 mirtazapine 15 mg tablet 15 mg PO BEDTIME RF: 0 (DME) blood sugar diagnostic Strip See Rx Instructions strip .ROUTE .MEDSUPPLY Qty: 10 RF: 0 lorazepam 1 mg tablet 1 mg PO DAILY PRN (Reason: Anxiety) RF: 0 clonazepam 0.5 mg tablet 0.5 mg PO BEDTIME PRN (Reason: Anxiety) RF: 0 dicyclomine 20 mg tablet 20 mg PO Q8H RF: 0 albuterol sulfate 2.5 mg /3 mL (0.083 %) solution for nebulization 2.5 mg inhalation Q4-6H PRN (Reason: Shortness Of Breath Or Wheezing) RF: 0 Referrals: Meir Cason MD [Primary Care Provider] - 2 days [facility] Past Medical History Medical History Anxiety and depression Asthma Difficulty maintaining body in lying position GERD (gastroesophageal reflux disease) H/O multiple pulmonary nodules H/O vertigo Hypoglycemia Hypothyroid Low back pain Meniere disease Nausea Neck pain Panic attacks Preoperative examination Seizure disorder Shortness of breath Surgical History Hx of appendectomy Hx of section Hx of cholecystectomy Family History Family History Father Hypertension High cholesterol Dementia Blind Mother Hypertension Diabetes mellitus High cholesterol Chronic kidney disease Sister Hypertension Diabetes mellitus Hx laparoscopic cholecystectomy Asthma Sister High cholesterol Hypertension FH: kidney cancer Sister Vertigo Brother No problems noted. Brother Brain tumor Epilepsia Daughter Hypoglycemia Vertigo Asthma Meniere disease Son Asthma Migraine Gastritis Social History Social History Alcohol intake: never Advance Directives: No Advance Directives Information Provided: Yes
[2021-01-25] MEDS: 0.9 % Sodium Chloride 1,000 ML 999 ML IVCONT (09:54)
[2021-01-25 09:59] LABS: MANUAL DIFF FLAG NO
[2021-01-25 10:00] VITALS: BP 117/71; PULSE 58; RESP 18; O2SAT 97
[2021-01-25 10:05] LABS: Appearance Urine HAZY; Color Urine YELLOW; Glucose Urine UA NEG (NEG); Leukocyte Esterase Urine 2+ (NEG); Nitrite Urine NEG (NEG); UACC Culture Trigger YES; Urine Blood NEG (NEG); Urine Ketones NEG (NEG); Urine Protein NEG (NEG-TRACE)
[2021-01-25 10:17] LABS: Basophils Percent Auto 0.5 % (0-2); Eosinophils Absolute Auto 0.3 X10*3/uL (0.0-0.4); Hematocrit 37.2 % (37-47); Hemoglobin 12.6 g/dl (12.0-16.0); Imm Gran Abs Auto 0.01 X10*3/uL (0.00-0.03); Imm Gran Pct Auto 0.2 % (0.0-0.4); Lymphocytes Absolute Auto 1.6 X10*3/uL (1.2-4.9); Lymphocytes Percent Auto 27.1 % (20-40); Mean Corpuscular HGB Conc 33.9 g/dl (31.0-35.0); Mean Corpuscular Hemoglobin 28.8 pg (27.0-33.0); Mean Corpuscular Volume 84.9 fL (80-98); Mean Platelet Volume 11.4 fL (9.4-12.3); Monocytes Absolute Auto 0.7 X10*3/uL (0.1-1.2); Monocytes Percent Auto 11.9 % (2-11); Neutrophils Absolute Auto 3.4 X10*3/uL (2.0-8.3); Neutrophils Percent Auto 55.3 % (45-73); Platelet Count 218 X10*3/uL (160-400); Red Blood Count 4.38 X10*6/uL (4.20-5.50); Red Cell Distribution Width 12.8 % (11.0-16.0); White Blood Count 6.1 X10*3/uL (4.8-10.8)
[2021-01-25 10:20] LABS: Alanine Aminotransferase 22 U/L (0-31); Albumin Level 3.7 g/dL (3.5-5.0); Alkaline Phosphatase 70 U/L (39-117); Anion Gap 12 (12-20); Aspartate Amino Transferase 23 U/L (5-31); Bilirubin Direct < 0.2 mg/dL (0.0-0.5); Bilirubin Total 0.4 mg/dL (0.0-1.0); Blood Urea Nitrogen 13 mg/dL (9-16); Calcium 8.9 mg/dL (8.4-10.2); Carbon Dioxide 23 mmol/L (22-29); Chloride 111 mmol/L (96-108); Creatinine Clr Calc Pharmacy 68.5; Estimated Glomerular Filt Rate > 60; Glucose Random 94 mg/dL (60-115); Lipase 33 U/L (8-78); Potassium 4.9 mmol/L (3.3-5.1); Sodium 141 mmol/L (135-145); Total Protein 6.3 g/dL (6.5-8.0)
[2021-01-25 10:22] LABS: RBC Urine 0 /HPF (0); Renal Epithelial Cells Urine 1+ /LPF; Squamous Epithelial Cell Urine TRACE /LPF
== END 2021-01-25 11:57 | disposition home or self-care (01) ==
PROVIDERS: Emergency Provider Emergency Medicine; PCP Internal Medicine
DX: K65.4 Sclerosing mesenteritis (principal); N30.00 Acute cystitis without hematuria; G40.909 Epilepsy, unspecified, not intractable, without status epilepticus; Z90.49 Acquired absence of other specified parts of digestive tract; Z90.89 Acquired absence of other organs
CPT/HCPCS: 36415; 74176; 80048; 80076; 81001; 81003; 83690; 85025; 87086; 96360; 99283; 99284

== ENCOUNTER 2021-02-02 07:54 | Emergency (ER) | payer OTHER, SELFPAY ==
--- NOTE | ~2021-02-02 | XR_ITS ---
EXAMINATION: XR CHEST CLINICAL INFORMATION: Right-sided chest pain COMPARISON: Chest x-ray on 05/29/2020 TECHNIQUE: 2 views of the chest were obtained. FINDINGS: No significant abnormality is noted involving the heart, lungs, mediastinum, bony thorax or soft tissues. XR/XR chest 2V IMPRESSION: Unremarkable examination.
--- NOTE | ~2021-02-02 | NM_ITS ---
EXAMINATION: NM LUNG IMAGE PERFUSION CLINICAL INFORMATION: Positive d-dimer. COMPARISON: None TECHNIQUE: Following intravenous administration of 4 mCi of 99m Tc MAA, imaging of both lungs were obtained multiple projections. FINDINGS: There is normal flow seen to all segments of both lungs without any segmental or subsegmental defects. Ventilation study was not performed. NM/NM pul perfusion IMPRESSION: Normal perfusion scan. No evidence of PE.
[2021-02-02 08:06] VITALS: BP 136/82; PULSE 66; RESP 18; TEMP 36.9; O2SAT 100; BMI 31.5
--- NOTE | 2021-02-02 08:11 | ED_ITS ---
HPI - General Adult General Chief complaint: Back Pain/Injury Stated complaint: rib pain Time Seen by Provider: 02/02/21 08:01 Source: patient Mode of arrival: ambulatory Limitations: no limitations History of Present Illness HPI narrative: This is a 55 year years old female presented to the emergency department complaining of right-sided chest pain and right flank pain she was already evaluated in this emergency room on January [address] scan of the abdomen and pelvis which did no show any kidney stone or right-sided pathology. The daughter brought the patient here today his concern about the lungs. Onset (ago): day(s) (8) Location: right (Chest and flank) Radiation: non-radiation Severity: moderate Quality: aching Pain Consistency: constant Relieving factors: none Exacerbating factors: none Related Data Home Medications Medication Instructions Recorded Confirmed albuterol sulfate 2.5 mg INHALATION Q4-6H PRN 05/28/20 06/20/20 albuterol sulfate 90 mcg/actuation 2 puff INHALATION Q4H PRN 05/28/20 06/20/20 aerosol inhaler blood sugar diagnostic #10 ea 05/28/20 06/20/20 clonazepam 0.5 mg tablet 0.5 mg PO BEDTIME PRN 05/28/20 06/20/20 dicyclomine 20 mg tablet 20 mg PO Q8H 05/28/20 06/20/20 levetiracetam 500 mg tablet 500 mg PO BID 05/28/20 06/20/20 levothyroxine 50 mcg tablet 50 mcg PO DAILY 05/28/20 06/20/20 lorazepam 1 mg tablet 1 mg PO DAILY PRN 05/28/20 06/20/20 meclizine 12.5 mg tablet 12.5 mg PO DAILY PRN 05/28/20 06/20/20 mirtazapine 15 mg tablet 15 mg PO BEDTIME 05/28/20 06/20/20 omeprazole 20 mg capsule,delayed 20 mg PO DAILY 05/28/20 06/20/20 release amitriptyline 25 mg tablet 1 tab PO BEDTIME 06/05/20 06/20/20 diclofenac sodium 1 % topical gel 1 g TOPICAL BID 06/05/20 06/20/20 hydroxyzine HCl 25 mg tablet tab PO 06/05/20 06/20/20 ibuprofen 600 mg tablet 600 mg PO TID 06/05/20 06/20/20 methocarbamol 500 mg tablet 1 tab PO TID PRN 06/05/20 06/20/20 Previous Rx's Medication Instructions Recorded ondansetron HCl 4 mg tablet 4 mg PO Q8H PRN #14 tab 05/25/20 (Zofran) docusate sodium 100 mg capsule 100 mg PO BID #60 cap 06/05/20 (Colace) oxycodone 5 mg tablet 5 mg PO Q8H PRN #25 tab 06/05/20 nystatin 100,000 unit/mL oral 100,000 unit PO BID 7 Days #14 ml 06/11/20 suspension cefuroxime axetil 250 mg tablet 250 mg PO BID #14 tab 01/25/21 Allergies Allergy/AdvReac Type Severity Reaction Status Date / Time Iodinated Contrast Media Allergy Severe Anaphylaxis Verified 06/20/20 14:14 [IV CONTRAST] moxifloxacin [From AVELOX] Allergy Severe ANAPHYLAXIS Verified 06/20/20 14:14 naproxen [NAPROXEN] Allergy Severe VOMITTING Verified 06/20/20 14:14 Review of Systems Review of Systems: Yes all other systems are reviewed and are negative Constitutional: Constitutional: Denies fever(s) ENT: Denies vertigo and Denies dizziness Cardiovascular: Cardiovascular: Denies Abdominal Distension Respiratory: Respiratory: Reports no additional respiratory complaints Neurologic: Reports system reviewed and no additional complaints, except as documented, Denies vertigo and Denies dizziness Psychiatric: Psychiatric: Reports no additional psychiatric complaints PMFSH Past Medical History Medical History Anxiety and depression Asthma Difficulty maintaining body in lying position GERD (gastroesophageal reflux disease) H/O multiple pulmonary nodules H/O vertigo Hypoglycemia Hypothyroid Low back pain Meniere disease Nausea Neck pain Panic attacks Preoperative examination Seizure disorder Shortness of breath Surgical History Hx of appendectomy Hx of section Hx of cholecystectomy Family History Family History Father Hypertension High cholesterol Dementia Blind Mother Hypertension Diabetes mellitus High cholesterol Chronic kidney disease Sister Hypertension Diabetes mellitus Hx laparoscopic cholecystectomy Asthma Sister High cholesterol Hypertension FH: kidney cancer Sister Vertigo Brother No problems noted. Brother Brain tumor Epilepsia Daughter Hypoglycemia Vertigo Asthma Meniere disease Son Asthma Migraine Gastritis Social History Social History Alcohol intake: never Advance Directives: No Physical Exam Vital Signs: Vital Signs: Last Vital Signs Temp 98.4 F 02/02/21 08:06 Pulse 66 02/02/21 08:06 Resp 18 02/02/21 08:06 BP 136/82 02/02/21 08:06 Pulse Ox 100 02/02/21 08:06 Body Mass Index 31.5 Const: General: cooperative Nutritional Appearance: average body habitus HENMT: Head: Yes normal to inspection Face and sinus: Yes normal facial exam Neck: Neck: Yes normal visual inspection and Yes full ROM Chest: Chest palpation & inspection: normal inspection of the chest Resp: Effort & Inspection: normal respiratory effort and able to speak in complete sentences Auscultation: clear to auscultation bilaterally Cardio: Jugular venous distension: no JVD Rate: regular rate Rhythm: regular rhythm GI: Inspection: Yes normal to inspection Palpation (GI): Soft to palpation, not firm, nontender and no guarding Skin: General skin exam: no rashes or lesions noted, elasticity normal and turgor normal Neuro: Cranial nerves: Yes CN's II-XII intact bilaterally Course Course Course Narrative: feels better,her pain is in the right reproducible,ct scan was already done in the prior visit,CXR negative,VQ scan done (allergic to contrast ) no PE Medical Decision Making Lab Data Result diagrams: 02/02/21 08:47 02/02/21 08:47 Labs: Lab Results 02/02/21 02/02/21 02/02/21 Range/Units 08:47 08:47 08:47 WBC 6.5 (4.8-10.8) X10*3/uL RBC 4.71 (4.20-5.50) X10*6/uL Hgb 13.7 (12.0-16.0) g/dl Hct 39.7 (37-47) % MCV 84.3 (80-98) fL MCH 29.1 (27.0-33.0) pg MCHC 34.5 (31.0-35.0) g/dl RDW 12.6 (11.0-16.0) % Plt Count 242 (160-400) X10*3/uL MPV 10.9 (9.4-12.3) fL Immature Gran % (Auto) 0.2 (0.0-0.4) % Neut % (Auto) 57.5 (45-73) % Lymph % (Auto) 23.5 (20-40) % [place] % (Auto) 10.1 (2-11) % Eos % (Auto) 8.1 H (0-4) % Baso % (Auto) 0.6 (0-2) % Lymph # (Auto) 1.5 (1.2-4.9) X10*3/uL [place] # (Auto) 0.7 (0.1-1.2) X10*3/uL Eos # (Auto) 0.5 H (0.0-0.4) X10*3/uL Baso # (Auto) 0.0 (0.0-0.2) X10*3/uL Abs Immat Gran (auto) 0.01 (0.00-0.03) X10*3/uL Absolute Neuts (auto) 3.8 (2.0-8.3) X10*3/uL Absolute Nucleated RBC 0.000 (0.0-0.012) X10*3/uL Nucleated RBC % (auto) 0.0 (0.0-0.2) /100WBC D-Dimer 278 NG/ML Sodium 144 (135-145) mmol/L Potassium 4.5 (3.3-5.1) mmol/L Chloride 109 H (96-108) mmol/L Carbon Dioxide 28 (22-29) mmol/L Anion Gap 12 (12-20) BUN 9 (9-16) mg/dL Creatinine 0.88 (0.5-1.4) mg/dL Estim Creat Clear Calc 61.8 Estimated GFR > 60 Random Glucose 83 (60-115) mg/dL Calcium 9.4 (8.4-10.2) mg/dL Total Bilirubin 0.4 (0.0-1.0) mg/dL AST 18 (5-31) U/L ALT 19 (0-31) U/L Alkaline Phosphatase 75 (39-117) U/L Total Protein 6.8 (6.5-8.0) g/dL Albumin 4.1 (3.5-5.0) g/dL Urine Color Urine Appearance Urine pH (5.0-8.0) Ur Specific Dorothy (1.005-1.025) Urine Protein (NEG-TRACE) MG/DL Urine Glucose (UA) (NEG) MG/DL Urine Ketones (NEG) MG/DL Urine Blood (NEG) Urine Nitrite (NEG) Ur Leukocyte Esterase (NEG) Urine RBC (0) /HPF Urine WBC (0-4) /HPF Ur Squamous Epith Cells /LPF Urine Bacteria /LPF 02/02/21 Range/Units 08:47 WBC (4.8-10.8) X10*3/uL RBC (4.20-5.50) X10*6/uL Hgb (12.0-16.0) g/dl Hct (37-47) % MCV (80-98) fL MCH (27.0-33.0) pg MCHC (31.0-35.0) g/dl RDW (11.0-16.0) % Plt Count (160-400) X10*3/uL MPV (9.4-12.3) fL Immature Gran % (Auto) (0.0-0.4) % Neut % (Auto) (45-73) % Lymph % (Auto) (20-40) % [place] % (Auto) (2-11) % Eos % (Auto) (0-4) % Baso % (Auto) (0-2) % Lymph # (Auto) (1.2-4.9) X10*3/uL [place] # (Auto) (0.1-1.2) X10*3/uL Eos # (Auto) (0.0-0.4) X10*3/uL Baso # (Auto) (0.0-0.2) X10*3/uL Abs Immat Gran (auto) (0.00-0.03) X10*3/uL Absolute Neuts (auto) (2.0-8.3) X10*3/uL Absolute Nucleated RBC (0.0-0.012) X10*3/uL Nucleated RBC % (auto) (0.0-0.2) /100WBC D-Dimer NG/ML Sodium (135-145) mmol/L Potassium (3.3-5.1) mmol/L Chloride (96-108) mmol/L Carbon Dioxide (22-29) mmol/L Anion Gap (12-20) BUN (9-16) mg/dL Creatinine (0.5-1.4) mg/dL Estim Creat Clear Calc Estimated GFR Random Glucose (60-115) mg/dL Calcium (8.4-10.2) mg/dL Total Bilirubin (0.0-1.0) mg/dL AST (5-31) U/L ALT (0-31) U/L Alkaline Phosphatase (39-117) U/L Total Protein (6.5-8.0) g/dL Albumin (3.5-5.0) g/dL Urine Color YELLOW Urine Appearance CLEAR Urine pH 5.5 (5.0-8.0) Ur Specific Dorothy <= 1.005 (1.005-1.025) Urine Protein NEG (NEG-TRACE) MG/DL Urine Glucose (UA) NEG (NEG) MG/DL Urine Ketones NEG (NEG) MG/DL Urine Blood NEG (NEG) Urine Nitrite NEG (NEG) Ur Leukocyte Esterase 1+ H (NEG) Urine RBC 0-2 (0) /HPF Urine WBC 1-4 (0-4) /HPF Ur Squamous Epith Cells 1+ /LPF Urine Bacteria TRACE /LPF Imaging Data Chest x-ray: Radiologist's impression: cc: Andrew Romeo MD~ EXAMINATION: XR CHEST CLINICAL INFORMATION: Right-sided chest pain COMPARISON: Chest x-ray on 05/29/2020 TECHNIQUE: 2 views of the chest were obtained. FINDINGS: No significant abnormality is noted involving the heart, lungs, mediastinum, bony thorax or soft tissues. XR/XR chest 2V IMPRESSION: Unremarkable examination. Dictated By: MARY MOODY MD Signed By: <Electronically signed by MARY MOODY MD in [place]> 02/02/21 1006 VQ scan: Radiologist's impression: CLINICAL INFORMATION: Positive d-dimer. COMPARISON: None TECHNIQUE: Following intravenous administration of 4 mCi of 99m Tc MAA, imaging of both lungs were obtained multiple projections. FINDINGS: There is normal flow seen to all segments of both lungs without any segmental or subsegmental defects. Ventilation study was not performed. NM/NM pul perfusion IMPRESSION: Normal perfusion scan. No evidence of PE. Dictated By: Td Umana MD Signed By: <Electronically signed by Td Umana MD in [place]> 02/02/21 1142 ECG Data Attestation: I personally reviewed and interpreted this ECG as follows: Pacemaker model: NSR rate 80s 60 02:00 axis is within normal limit ST-T segment isoelectric Discharge Plan Discharge Clinical Impression: Chest wall pain Patient Disposition: Home, Self-Care Instructions: Chest Wall Pain (ED) Prescriptions: No Action oxycodone 5 mg tablet 5 mg PO Q8H PRN (Reason: pain) Qty: 25 RF: 0 nystatin 100,000 unit/mL suspension 100,000 unit PO BID 7 Days Qty: 14 RF: 0 methocarbamol 500 mg tablet 1 tab PO TID PRN (Reason: muscle spasm) RF: 0 amitriptyline 25 mg tablet 1 tab PO BEDTIME RF: 0 hydroxyzine HCl 25 mg tablet PO RF: 0 ibuprofen 600 mg Tablet 600 mg PO TID RF: 0 diclofenac sodium 1 % gel 1 g topical BID RF: 0 docusate sodium [Colace] 100 mg capsule 100 mg PO BID Qty: 60 RF: 0 ondansetron HCl [Zofran] 4 mg tablet 4 mg PO Q8H PRN (Reason: nausea and vomiting) Qty: 14 RF: 0 cefuroxime axetil 250 mg tablet 250 mg PO BID Qty: 14 RF: 0 levothyroxine 50 mcg tablet 50 mcg PO DAILY RF: 0 omeprazole 20 mg capsule,delayed release(DR/EC) 20 mg PO DAILY RF: 0 meclizine 12.5 mg tablet 12.5 mg PO DAILY PRN (Reason: Vertigo) RF: 0 albuterol sulfate 90 mcg/actuation HFA aerosol inhaler 2 puff inhalation Q4H PRN (Reason: wheezing) RF: 0 levetiracetam 500 mg tablet 500 mg PO BID RF: 0 mirtazapine 15 mg tablet 15 mg PO BEDTIME RF: 0 (DME) blood sugar diagnostic Strip See Rx Instructions strip .ROUTE .MEDSUPPLY Qty: 10 RF: 0 lorazepam 1 mg tablet 1 mg PO DAILY PRN (Reason: Anxiety) RF: 0 clonazepam 0.5 mg tablet 0.5 mg PO BEDTIME PRN (Reason: Anxiety) RF: 0 dicyclomine 20 mg tablet 20 mg PO Q8H RF: 0 albuterol sulfate 2.5 mg /3 mL (0.083 %) solution for nebulization 2.5 mg inhalation Q4-6H PRN (Reason: Shortness Of Breath Or Wheezing) RF: 0 Referrals: Meir Cason MD [Primary Care Provider] - 2 days
--- NOTE | 2021-02-02 08:15 | ECG_ITS ---
Test Reason : cp Blood Pressure : / mmHG Vent. Rate : 062 BPM Atrial Rate : 062 BPM P-R Int : 142 ms QRS Dur : 072 ms QT Int : 390 ms P-R-T Axes : 018 024 028 degrees QTc Int : 395 ms Normal sinus rhythm Nonspecific T wave abnormality Anterior leads Borderline ECG No significant changes seen Referred By: Andrew Romeo Electronically Signed By:NATALY PARKINSON MD
[2021-02-02 08:52] LABS: MANUAL DIFF FLAG NO
[2021-02-02 08:53] LABS: Appearance Urine CLEAR; Basophils Percent Auto 0.6 % (0-2); Color Urine YELLOW; Eosinophils Absolute Auto 0.5 X10*3/uL (0.0-0.4); Eosinophils Percent Auto 8.1 % (0-4); Glucose Urine UA NEG (NEG); Hematocrit 39.7 % (37-47); Hemoglobin 13.7 g/dl (12.0-16.0); Imm Gran Abs Auto 0.01 X10*3/uL (0.00-0.03); Imm Gran Pct Auto 0.2 % (0.0-0.4); Leukocyte Esterase Urine 1+ (NEG); Lymphocytes Absolute Auto 1.5 X10*3/uL (1.2-4.9); Lymphocytes Percent Auto 23.5 % (20-40); Mean Corpuscular HGB Conc 34.5 g/dl (31.0-35.0); Mean Corpuscular Hemoglobin 29.1 pg (27.0-33.0); Mean Corpuscular Volume 84.3 fL (80-98); Mean Platelet Volume 10.9 fL (9.4-12.3); Monocytes Absolute Auto 0.7 X10*3/uL (0.1-1.2); Monocytes Percent Auto 10.1 % (2-11); Neutrophils Absolute Auto 3.8 X10*3/uL (2.0-8.3); Neutrophils Percent Auto 57.5 % (45-73); Nitrite Urine NEG (NEG); PH 5.5 (5.0-8.0); Platelet Count 242 X10*3/uL (160-400); Red Blood Count 4.71 X10*6/uL (4.20-5.50); Red Cell Distribution Width 12.6 % (11.0-16.0); Specific Gravity - Urine <= 1.005 (1.005-1.025); UACC Culture Trigger YES; Urine Blood NEG (NEG); Urine Ketones NEG (NEG); Urine Protein NEG (NEG-TRACE); White Blood Count 6.5 X10*3/uL (4.8-10.8)
[2021-02-02 09:01] LABS: Bacteria Urine TRACE /LPF; RBC Urine 0-2 /HPF (0); Squamous Epithelial Cell Urine 1+ /LPF; UACC CULT YES
[2021-02-02 09:02] LABS: D Dimer 278 NG/ML
[2021-02-02 09:26] LABS: Alanine Aminotransferase 19 U/L (0-31); Albumin Level 4.1 g/dL (3.5-5.0); Alkaline Phosphatase 75 U/L (39-117); Anion Gap 12 (12-20); Aspartate Amino Transferase 18 U/L (5-31); Bilirubin Total 0.4 mg/dL (0.0-1.0); Blood Urea Nitrogen 9 mg/dL (9-16); Calcium 9.4 mg/dL (8.4-10.2); Carbon Dioxide 28 mmol/L (22-29); Chloride 109 mmol/L (96-108); Creatinine Clr Calc Pharmacy 61.8; Estimated Glomerular Filt Rate > 60; Glucose Random 83 mg/dL (60-115); Potassium 4.5 mmol/L (3.3-5.1); Sodium 144 mmol/L (135-145); Total Protein 6.8 g/dL (6.5-8.0)
[2021-02-02 12:18] VITALS: PULSE 66; RESP 18; O2SAT 98
== END 2021-02-02 12:39 | disposition home or self-care (01) ==
PROVIDERS: Emergency Provider Emergency Medicine; PCP Internal Medicine
DX: R07.9 Chest pain, unspecified (principal); R07.81 Pleurodynia; R10.9 Unspecified abdominal pain; R06.02 Shortness of breath; Z79.899 Other long term (current) drug therapy
CPT/HCPCS: 36415; 71046; 78580; 80053; 81001; 85025; 85379; 87086; 93005; 99284; A9540

== ENCOUNTER → 2021-02-11 11:36 | Outpatient (BNVA) | payer OTHER, SELFPAY | PROVIDERS: PCP Internal Medicine; Visit Provider Internal Medicine Pulmonary Disease | DX: J45.909 Unspecified asthma, uncomplicated (principal); R07.9 Chest pain, unspecified | CPT/HCPCS: 99212 ==

== ENCOUNTER 2021-03-18 12:41 | Outpatient (REF) | payer OTHER, SELFPAY ==
--- NOTE | ~2021-03-18 | CT_ITS ---
EXAMINATION: CT CHEST WITHOUT CONTRAST CLINICAL INFORMATION: Chest pain COMPARISON: Previous chest x-ray and CT scan January 2021 TECHNIQUE: Multidetector volumetric CT imaging of the chest was done. Axial MIP volume rendering provided. Sagittal and coronal reformatted images were obtained. This CT examination was performed using dose optimization techniques as appropriate, variously including the following: *Automated exposure control *Adjustment of mA and/or kV according to patient size (this includes techniques or standardized protocols for targeted exams where dose is matched to indication/reason for exam; i.e. extremities or head) *Use of iterative reconstruction technique DLP: 228 mGy-cm FINDINGS: LUNGS: There is a 2 mm right upper lobe nodule axial image 61 series 5. There is a 2 mm right upper lobe nodule axial image 82 series 5. There is a 3 mm peripheral or subpleural right upper lobe nodule axial image 126 series 5. There is a 3 mm peripheral right lower lobe nodule axial image 193 series 5. There is a 2 mm peripheral or subpleural right lower lobe nodule axial image 198 series 5. There is a 2 mm peripheral right upper lobe nodule axial image 217 series 5. There is a 2 mm peripheral left lower lobe nodule axial image 253 series 5. There is a 4 mm calcified left lower lobe nodule axial image 393 series 5. MEDIASTINUM: The mediastinum is normal. PLEURA: There is no pleural effusion. No pleural mass or thickening. AXILLA: No lymphadenopathy. UPPER ABDOMEN: The gallbladder has been removed. OSSEOUS STRUCTURES: There are mild degenerative changes of the spine. There is a small 5 mm sclerotic density in the urogram. CT/CT chest wo con IMPRESSION: Small calcified and noncalcified pulmonary nodules or micronodules. Largest nodule is a 4 mm calcified left lower lobe nodule. According to the UPDATED 2017 Fleischner Society recommendations, the advised follow-up imaging for less than 6 mm nodule: Low risk, no chest CT follow-up and high risk, optional chest CT follow-up in one. Fleischner guidelines were followed.
== END 2021-03-18 12:42 | disposition home or self-care (01) ==
LOC: HO.CT 12:41
PROVIDERS: PCP Internal Medicine; Visit Provider Internal Medicine Pulmonary Disease
DX: R07.9 Chest pain, unspecified (principal)
CPT/HCPCS: 71250

== ENCOUNTER 2021-10-21 10:31 | Outpatient (REF) | payer OTHER, SELFPAY | END 2021-10-21 10:32 | disposition home or self-care (01) | LOC: HO.LAB 10:31 | PROVIDERS: Visit Provider Internal Medicine | DX: Z13.89 Encounter for screening for other disorder (principal) ==

== ENCOUNTER 2021-10-21 10:51 | Emergency (ER) | payer OTHER, SELFPAY ==
--- NOTE | ~2021-10-21 | XR_ITS ---
EXAMINATION: XR CHEST CLINICAL INFORMATION: Cough. has Covid. COMPARISON: None TECHNIQUE: 2 views of the chest were obtained. FINDINGS: The lungs are well-expanded with fine interstitial prominence in both upper lobes. No acute consolidation seen. The heart size and pulmonary vascularity is normal. No gross bony abnormality seen. XR/XR chest 2V IMPRESSION: Fine interstitial markings in both upper lobes but no acute consolidation seen.
[2021-10-21 10:53] VITALS: BP 104/70; PULSE 111; RESP 19; TEMP 38.6; O2SAT 95; BMI 36.5
[2021-10-21] MEDS: Acetaminophen 325 MG TABLET 975 MG PO (11:01)
[2021-10-21 11:42] LABS: COVID-19 Test Positive (Negative); IDNOW Serial# 9DB6401D
[2021-10-21 17:20] VITALS: BP 115/71; PULSE 84; RESP 16; TEMP 37.7; O2SAT 100
--- NOTE | 2021-10-21 17:45 | ED_ITS ---
HPI - URI/Sore Throat General Chief Complaint: Upper Respiratory Symptoms Stated Complaint: COVID Symptoms Time Seen by Provider: 10/21/21 17:15 Source: patient Mode of arrival: ambulatory History of Present Illness HPI Narrative: 55-year-old female with a past medical history of anxiety, depression, asthma, GERD, pulmonary nodules, vertigo, hypoglycemia, hypothyroid, Meniere disease, seizure disorder, presenting to the ED complaining of fever T-max 100.9 degrees, chills, headache, sore throat, dry cough, and myalgias since yesterday. Admits tested positive for COVID-19 today and is being admitted to the hospital. Denies shortness of breath chest pain, recent travel, pedal edema, painful abdominal pain, nausea/vomiting, decreased p.o. intake MD elicited complaint: fever, cough, sore throat and nasal congestion Onset (ago): day(s) Related Data Home Medications Medication Instructions Recorded Confirmed albuterol sulfate 2.5 mg inhalation Q4-6H PRN 05/28/20 06/20/20 Shortness Of Breath Or Wheezing albuterol sulfate 90 mcg/actuation 2 puff inhalation Q4H PRN wheezing 05/28/20 06/20/20 aerosol inhaler blood sugar diagnostic #10 ea 05/28/20 06/20/20 dicyclomine 20 mg tablet 20 mg PO Q8H 05/28/20 06/20/20 levetiracetam 500 mg tablet 500 mg PO BID 05/28/20 06/20/20 levothyroxine 50 mcg tablet 50 mcg PO DAILY 05/28/20 06/20/20 lorazepam 1 mg tablet 1 mg PO DAILY PRN Anxiety 05/28/20 06/20/20 meclizine 12.5 mg tablet 12.5 mg PO DAILY PRN Vertigo 05/28/20 06/20/20 mirtazapine 15 mg tablet 15 mg PO BEDTIME 05/28/20 06/20/20 omeprazole 20 mg capsule,delayed 20 mg PO DAILY 05/28/20 06/20/20 release amitriptyline 25 mg tablet 1 tab PO BEDTIME 06/05/20 06/20/20 diclofenac sodium 1 % topical gel 1 g topical BID 06/05/20 06/20/20 ibuprofen 600 mg tablet 600 mg PO TID 06/05/20 06/20/20 methocarbamol 500 mg tablet 1 tab PO TID PRN muscle spasm 06/05/20 06/20/20 Previous Rx's Medication Instructions Recorded ondansetron HCl 4 mg tablet 4 mg PO Q8H PRN nausea and 05/25/20 (Zofran) vomiting #14 tabs docusate sodium 100 mg capsule 100 mg PO BID #60 caps 06/05/20 (Colace) oxycodone 5 mg tablet 5 mg PO Q8H PRN pain #25 tabs 06/05/20 nystatin 100,000 unit/mL oral 100,000 unit PO BID 7 days #14 mL 06/11/20 suspension cefuroxime axetil 250 mg tablet 250 mg PO BID #14 tabs 01/25/21 Allergies Allergy/AdvReac Type Severity Reaction Status Date / Time Iodinated Contrast Media Allergy Severe Anaphylaxis Verified 02/11/21 11:43 [IV CONTRAST] moxifloxacin [From AVELOX] Allergy Severe ANAPHYLAXIS Verified 02/11/21 11:43 naproxen [NAPROXEN] Allergy Severe VOMITTING Verified 02/11/21 11:43 Review of Systems Review of Systems: Constitutional: + Fever, + Chills ENT/Mouth: No Ear Pain, No Nasal Congestion, No Sinus Pain, No Hoarseness, + sore throat, + Rhinorrhea, No Swallowing Difficulty Cardiovascular: No Chest Pain, No SOB Respiratory: + Cough, No Sputum, No Wheezing Gastrointestinal: No Nausea, No Vomiting, No Diarrhea, No Constipation, No Abdominal pain Genitourinary: No Dysuria, No Urgency, No Flank Pain Musculoskeletal: No joint pain, + Myalgias, No Joint Swelling Skin: No Skin Lesions, No rash Neuro: No Weakness, No Numbness, No Paresthesias Yes all other systems are reviewed and are negative [facility] Past Medical History Attestation statement: The following information was validated with the patient. Medical History Anxiety and depression Asthma Difficulty maintaining body in lying position GERD (gastroesophageal reflux disease) H/O multiple pulmonary nodules H/O vertigo Hypoglycemia Hypothyroid Low back pain Meniere disease Nausea Neck pain Panic attacks Preoperative examination Seizure disorder Shortness of breath Surgical History Hx of appendectomy Hx of section Hx of cholecystectomy Family History Family History Father Hypertension High cholesterol Dementia Blind Mother Hypertension Diabetes mellitus High cholesterol Chronic kidney disease Sister Hypertension Diabetes mellitus Hx laparoscopic cholecystectomy Asthma Sister High cholesterol Hypertension FH: kidney cancer Sister Vertigo Brother No problems noted. Brother Brain tumor Epilepsia Daughter Hypoglycemia Vertigo Asthma Meniere disease Son Asthma Migraine Gastritis Social History Social History Alcohol intake: never Physical Exam Vital Signs: Vital Signs: Last Vital Signs Temp 99.8 F 10/21/21 17:20 Pulse 84 10/21/21 17:20 Resp 16 10/21/21 17:20 BP 115/71 10/21/21 17:20 Pulse Ox 100 10/21/21 17:20 O2 Del Method 10/21/21 17:20 BMI result Body Mass Index 36.5 Const: General: cooperative, healthy appearing and no acute distress Orientation/consciousness: patient oriented x3 Limitations: no limitations HEENT: Head: Yes normal to inspection and Yes atraumatic Ears: hearing grossly normal bilaterally, external ears normal, TM's normal bilaterally and mastoids normal General nose exam: Normal external nose present Face and sinus: Yes normal facial exam Mouth: Normal oral and palatal mucosa present Throat: Yes posterior oropharynx normal, Yes tonsils normal, Yes uvula midline, Yes abnormal tonsil, No peritonsillar mass and No uvula laterally displaced Eyes: General: appearance normal, both eyes and all related structures EOM: EOMs intact bilaterally Neck: Neck: Yes normal visual inspection, Yes no lymphadenopathy, Yes no meningeal signs, Yes trachea midline and Yes supple Resp: Effort & Inspection: normal respiratory effort and no respiratory distress Auscultation: clear to auscultation bilaterally, no crackles, no rales, no rhonchi and no wheezes Cardio: Rate: regular rate Heart sounds: S1 normal heart sound present and S2 normal heart sound present GI: Inspection: Yes normal to inspection Palpation (GI): Soft to palpation, nontender, no guarding and not rigid Skin: Rashes: no rashes Wounds: no wounds Neuro: General: patient oriented x3, tone normal and no meningeal signs Gait exam (Neuro): Normal gait present Extrem: General: Yes normal to inspection Course Course Course Narrative: -COVID-19 positive XR chest 2V IMPRESSION: Fine interstitial markings in both upper lobes but no acute consolidation seen. > results discussed with patient. Discussed COVID-19 treatment with Paxlovid & or monoclonal antibodies, patient would like to be referred for monoclonal antibodies. Juan Miguel's referral made. Discussed worrisome signs and symptoms and strict return precautions MDM - URI/Sore Throat MDM Narrative Medical decision making narrative: 55-year-old female with a past medical history of anxiety, depression, asthma, GERD, pulmonary nodules, vertigo, hypoglycemia, hypothyroid, Meniere disease, seizure disorder, presenting to the ED complaining of fever T-max 100.9 degrees, chills, headache, sore throat, dry cough, and myalgias since yesterday. On exam initially febrile to 101.4, tachycardic from fever, NAD/nontoxic appearing, lungs CTA. Concern for COVID-19/viral illness. Rule out pneumonia. Low concern for severe sepsis Plan: COVID-19 testing, CXR, antipyretics Differential Diagnosis Differential diagnosis: Likely upper respiratory infection, viral infection, bronchitis, influenza and pharyngitis Medical Records Attestation: I reviewed the patient's medical records. Lab Data Attestation: I reviewed the patient's lab results. Labs: Lab Results 10/21/21 Range/Units 11:19 COVID-19 (CHRISTY) Positive A (Negative) COVID-19 Clin Com See Note Discharge Plan Discharge Clinical Impression: COVID-19 Patient Disposition: Home, Self-Care Instructions: COVID-19 (Coronavirus Disease 2019) (ED) Additional Instructions: At this time you will be okay for discharge. Please self isolate for 7-14 days. Do not expose yourself to others. You may not go to work or school. WE HAVE REFERRED YOU FOR MONOCLONAL ANTIBODIES, THEY WILL CALL YOU TO MAKE AN APPOINTMENT, ANSWERED YOUR PHONE If you are having no symptoms after 5 days you may retest for COVID 19, if negative you may return to society, if positive, or still having symptoms after 5 days please self isolate for a full 10 days. Please continue to follow cold instructions and wash your hands frequently. You may take Tylenol / Motrin as directed on the bottle for pain or fever. If you have constant or persistent shortness of breath, fever unresolved with medications, chest pain, or your unable to eat or drink please return to the ED CDC Guidelines for home isolation: - Stay away from others - WEAR A MASK if you are sick AND STAY HOME - Cover your mouth and nose with a tissue when you cough or sneeze. Dispose of tissues in a lined trash can and wash your hands immediately with soap and water for at least 20 seconds. If soap and water are not available, clean hands with alcohol-based hand web applications architect that contains at least 60% alcohol. - Clean your hands often with soap and water for at least 20 seconds - Avoid touching your eyes, nose and mouth with unwashed hands - Do not share dishes, drinking glasses, cups, eating utensils, towels, or bedding with other people in your home. After using these items, wash them thoroughly with soap and water or put in the lay out worker. - Clean high-touch surfaces in your isolation area ( sick room and bathroom) every day; let a caregiver clean and disinfect high-touch surfaces in other ar eas of the home. Clean the area or item with soap and water or another detergent if it is dirty. Then, use a household disinfectant. - Limit contact with pets and animals: If you must care for a pet, wash your hands before and after interacting with them) Prescriptions: No Action oxycodone 5 mg tablet 5 mg PO Q8H PRN (Reason: pain) Qty: 25 0RF nystatin 100,000 unit/mL suspension 100,000 unit PO BID 7 Days Qty: 14 0RF Rx Instructions: administer 1/2 of dose in each side of the mouth/swish and swallow methocarbamol 500 mg tablet 1 tab PO TID PRN (Reason: muscle spasm) amitriptyline 25 mg tablet 1 tab PO BEDTIME ibuprofen 600 mg Tablet 600 mg PO TID diclofenac sodium 1 % gel 1 g topical BID docusate sodium [Colace] 100 mg capsule 100 mg PO BID Qty: 60 0RF ondansetron HCl [Zofran] 4 mg tablet 4 mg PO Q8H PRN (Reason: nausea and vomiting) Qty: 14 0RF cefuroxime axetil 250 mg tablet 250 mg PO BID Qty: 14 0RF levothyroxine 50 mcg tablet 50 mcg PO DAILY omeprazole 20 mg capsule,delayed release(DR/EC) 20 mg PO DAILY meclizine 12.5 mg tablet 12.5 mg PO DAILY PRN (Reason: Vertigo) albuterol sulfate 90 mcg/actuation HFA aerosol inhaler 2 puff inhalation Q4H PRN (Reason: wheezing) levetiracetam 500 mg tablet 500 mg PO BID mirtazapine 15 mg tablet 15 mg PO BEDTIME (DME) blood sugar diagnostic Strip See Rx Instructions .ROUTE .MEDSUPPLY Qty: 10 Rx Instructions: As directed lorazepam 1 mg tablet 1 mg PO DAILY PRN (Reason: Anxiety) dicyclomine 20 mg tablet 20 mg PO Q8H albuterol sulfate 2.5 mg /3 mL (0.083 %) solution for nebulization 2.5 mg inhalation Q4-6H PRN (Reason: Shortness Of Breath Or Wheezing) Referrals: Meir Cason III, MD [Primary Care Provider] - 5 days Stand Alone Forms: Work/School Release
== END 2021-10-21 18:14 | disposition home or self-care (01) ==
PROVIDERS: Emergency Provider Internal Medicine; PCP Internal Medicine
DX: U07.1 COVID-19 (principal); R50.9 Fever, unspecified; R51.9 Headache, unspecified; M79.10 Myalgia, unspecified site; Z79.899 Other long term (current) drug therapy
CPT/HCPCS: 71046; 87635; 99283; 99284

== ENCOUNTER 2022-08-16 00:37 | Emergency (ER) | payer OTHER, SELFPAY ==
--- NOTE | 2022-08-16 | ECG_ITS ---
Test Reason : DIZZINESS Blood Pressure : / mmHG Vent. Rate : 065 BPM Atrial Rate : 065 BPM P-R Int : 140 ms QRS Dur : 072 ms QT Int : 394 ms P-R-T Axes : 052 036 052 degrees QTc Int : 409 ms Normal sinus rhythm Nonspecific T wave abnormality Abnormal ECG When compared with ECG of 02-FEB-2021 08:29, No significant change was found Referred By: Generic ED Physician Electronically Signed By:LEYDI SCHULER MD
[2022-08-16 00:46] VITALS: BP 138/82; BP 151/84; PULSE 65; PULSE 67; RESP 16; TEMP 36.6; O2SAT 98; O2SAT 99; BMI 30.8
--- NOTE | 2022-08-16 02:09 | ED_ITS ---
HPI - Dizziness General Chief Complaint: Dizziness Stated Complaint: n/v dizziness Time Seen by Provider: 08/16/22 01:51 Source: patient and family (Daughter , Corina) Mode of arrival: EMS Limitations: no limitations History of Present Illness HPI Narrative: 56-year-old female brought to emergency department by ambulance for evaluation of room spinning dizziness, weakness and heaviness of her lower extremities. The patient does have a history of vertigo and Meniere's disease she takes meclizine 12.5 mg twice a day. At 22:52 hours she had a sudden onset of room spinning. The the sensation was associated with nausea weakness and heaviness or extremities. Her daughter gave her meclizine 12.5 mg orally and Zofran 4 mg ODT. Despite this the patient had persistent nausea and felt weaker therefore the daughter called an ambulance the patient was brought to the emergency department. The patient currently complains of heaviness of her lower extremities and persistent nausea with no vomiting. She denied headache, lightheadedness, dizziness, change in vision, abdominal pain, frequency, urgency or dysuria. Related Data Home Medications Medication Instructions Recorded Confirmed albuterol sulfate 2.5 mg/3 mL 2.5 mg inhalation Q4-6H PRN 05/28/20 06/20/20 (0.083 %) solution for nebulization Shortness Of Breath Or Wheezing albuterol sulfate 90 mcg/actuation 2 puff inhalation Q4H PRN wheezing 05/28/20 06/20/20 aerosol inhaler blood sugar diagnostic #10 ea 05/28/20 06/20/20 dicyclomine 20 mg tablet 20 mg PO Q8H 05/28/20 06/20/20 levetiracetam 500 mg tablet 500 mg PO BID 05/28/20 06/20/20 levothyroxine 50 mcg tablet 50 mcg PO DAILY 05/28/20 06/20/20 lorazepam 1 mg tablet 1 mg PO DAILY PRN Anxiety 05/28/20 06/20/20 meclizine 12.5 mg tablet 12.5 mg PO DAILY PRN Vertigo 05/28/20 06/20/20 mirtazapine 15 mg tablet 15 mg PO BEDTIME 05/28/20 06/20/20 omeprazole 20 mg capsule,delayed 20 mg PO DAILY 05/28/20 06/20/20 release amitriptyline 25 mg tablet 1 tab PO BEDTIME 06/05/20 06/20/20 diclofenac sodium 1 % topical gel 1 g topical BID 06/05/20 06/20/20 ibuprofen 600 mg tablet 600 mg PO TID 06/05/20 06/20/20 methocarbamol 500 mg tablet 1 tab PO TID PRN muscle spasm 06/05/20 06/20/20 Previous Rx's Medication Instructions Recorded ondansetron HCl 4 mg tablet 4 mg PO Q8H PRN nausea and 05/25/20 (Zofran) vomiting #14 tabs docusate sodium 100 mg capsule 100 mg PO BID #60 caps 06/05/20 (Colace) oxycodone 5 mg tablet 5 mg PO Q8H PRN pain #25 tabs 06/05/20 nystatin 100,000 unit/mL oral 100,000 unit PO BID 7 days #14 mL 06/11/20 suspension cefuroxime axetil 250 mg tablet 250 mg PO BID #14 tabs 01/25/21 Allergies Allergy/AdvReac Type Severity Reaction Status Date / Time Iodinated Contrast Media Allergy Severe Anaphylaxis Verified 02/11/21 11:43 [IV CONTRAST] moxifloxacin [From AVELOX] Allergy Severe ANAPHYLAXIS Verified 02/11/21 11:43 naproxen [NAPROXEN] Allergy Severe VOMITTING Verified 02/11/21 11:43 Review of Systems Review of Systems: Yes all other systems are reviewed and are negative [facility] Past Medical History Medical History Anxiety and depression Asthma Difficulty maintaining body in lying position GERD (gastroesophageal reflux disease) H/O multiple pulmonary nodules H/O vertigo Hypoglycemia Hypothyroid Low back pain Meniere disease Nausea Neck pain Panic attacks Preoperative examination Seizure disorder Shortness of breath Surgical History Hx of appendectomy Hx of section Hx of cholecystectomy Family History Family History Father Hypertension High cholesterol Dementia Blind Mother Hypertension Diabetes mellitus High cholesterol Chronic kidney disease Sister Hypertension Diabetes mellitus Hx laparoscopic cholecystectomy Asthma Sister High cholesterol Hypertension FH: kidney cancer Sister Vertigo Brother No problems noted. Brother Brain tumor Epilepsia Daughter Hypoglycemia Vertigo Asthma Meniere disease Son Asthma Migraine Gastritis Social History Social History Alcohol intake: never Smoked in Last 30 Days: No Use of substances other than those prescribed or required for medical reasons: No Advance Directives: No Advance Directives Information Provided: Yes Patient : No Physical Exam Vital Signs: Vital Signs: Last Vital Signs Temp 98.5 F 08/16/22 06:00 Pulse 66 08/16/22 06:00 Resp 13 08/16/22 06:00 BP 136/75 08/16/22 06:00 Pulse Ox 98 08/16/22 06:00 O2 Del Method Room Air 08/16/22 06:00 BMI result Body Mass Index 30.8 Medications Administered Discontinued Medications Generic Name Dose Route Start Last Admin Trade Name Freq PRN Reason Stop Dose Admin Sodium Chloride 1,000 mls @ 999 mls/hr 08/16/22 02:09 08/16/22 03:45 Ns IV 08/16/22 03:09 Infused .Q1H1M STA Infusion Ondansetron HCl 4 mg 08/16/22 02:53 08/16/22 02:57 Ondansetron Hcl 4 Mg/2 Ml Vial IVPUSH 08/16/22 02:54 4 mg ONCE ONE Administration Medical Decision Making Medical Decision Making [facility] Narrative: 56-year-old female with a history of Meniere's disease and vertigo presents emergency department for evaluation of sudden onset of room spinning sensation at 22:52 hours associated with nausea, weakness and heaviness ever lower extremities. At the time my evaluation the patient's did use improved but she still has persistent nausea and heaviness of her lower extremities. Patient's vital signs did revealed an elevated blood pressure of 151/84 otherwise unremarkable. Patient's neurologic exam was unremarkable, she is able to move all extremities well any difficulty enter cerebellar exam was normal. I ordered a laboratory evaluation includes CBC, CMP, urinalysis, 12 EKG. Patient was ordered to get normal saline IV x1 L and Zofran 4 mg IV for her nausea and vomiting. 0629: My interpretation of patient's labs are as follows: CBC was normal. CMP was normal. Urinalysis and microscopic were unremarkable. The patient is feeling better after the above treatment. Patient's symptoms were most likely triggered by her vertigo. Patient will be discharged home Differential Diagnosis Differential diagnosis includes but is not limited to stroke, TIA, urinary tract infection, vertigo, electrolyte abnormality, anemia Admission/Observation Consideration of admission/observation: Escalation of care including admission/observation considered Lab Data MDM Lab Attestation statement: I reviewed the patient's lab results. 08/16/22 02:27 08/16/22 02:27 Labs: Lab Results 08/16/22 08/16/22 08/16/22 Range/Units 02:27 02:27 02:45 WBC 8.6 (4.8-10.8) X10*3/uL RBC 5.18 (4.20-5.50) X10*6/uL Hgb 14.8 (12.0-16.0) g/dl Hct 43.9 (37.0-47.0) % MCV 84.7 (80.0-98.0) fL MCH 28.6 (27.0-33.0) pg MCHC 33.7 (31.0-35.0) g/dl RDW 12.7 (11.0-16.0) % Plt Count 224 (160-400) X10*3/uL MPV 11.1 (9.4-12.3) fL Immature Gran % (Auto) 0.4 (0.0-0.4) % Neut % (Auto) 83.4 H (45-73) % Lymph % (Auto) 9.7 L (20-40) % [place] % (Auto) 5.4 (2-11) % Eos % (Auto) 0.6 (0-4) % Baso % (Auto) 0.5 (0-2) % Lymph # (Auto) 0.8 L (1.2-4.9) X10*3/uL [place] # (Auto) 0.5 (0.1-1.2) X10*3/uL Eos # (Auto) 0.1 (0.0-0.4) X10*3/uL Baso # (Auto) 0.0 (0.0-0.2) X10*3/uL Abs Immat Gran (auto) 0.03 (0.00-0.03) X10*3/uL Absolute Neuts (auto) 7.2 (2.0-8.3) x10*3/uL Absolute Nucleated RBC 0.000 (0.0-0.012) X10*3/uL Nucleated RBC % (auto) 0.0 (0.0-0.2) /100WBC Sodium 141 (135-145) mmol/L Potassium 5.0 (3.3-5.1) mmol/L Chloride 109 H (96-108) mmol/L Carbon Dioxide 24 (22-29) mmol/L Anion Gap 13 (12-20) BUN 13 (9-16) mg/dL Creatinine 0.84 (0.5-1.4) mg/dL Estim Creat Clear Calc 63.2 Estimated GFR > 60 Random Glucose 110 (60-115) mg/dL Calcium 9.4 (8.4-10.2) mg/dL Total Bilirubin 0.4 (0.0-1.0) mg/dL AST 20 (5-31) U/L ALT 17 (0-31) U/L Alkaline Phosphatase 72 (39-117) U/L Total Protein 6.8 (6.5-8.0) g/dL Albumin 4.1 (3.5-5.0) g/dL Urine Color Yellow Urine Appearance Clear Urine pH 6.0 (5.0-9.0) Ur Specific [place] 1.015 (1.005-1.025) Urine Protein Negative (Neg-Trace) mg/dL Urine Glucose (UA) Negative (Negative) mg/dL Urine Ketones Negative (Negative) mg/dL Urine Blood Negative (Negative) Urine Nitrite Negative (Negative) Ur Leukocyte Esterase Trace H (Negative) Urine RBC 0-2 (0-2) /HPF Urine WBC 0-5 (0-5) /HPF Ur Squamous Epith Cells 0-2 (0-2) /HPF Urine Bacteria None Seen (None Seen) Hyaline Casts 0-2 (0-2) /LPF Independent Interpretation I performed an independent interpretation of an: EKG Interpretation: My independent interpretation of the patient's 12 EKG done at 01:11 hours is as follows: Normal sinus rhythm with a rate of 65, normal MT interval, QRS duration QTC interval, no ST segment elevation, no ST segment depression, no PACs, no PVCs, no Q-waves, inverted T-waves V1 and V2. Compared to EKG dated 02/02/2021 the T-wave inversions are old, there was no acute change. Independent Historian Clinical information obtained from an independent historian. History obtained from or confirmed by: Other (Daughter) Discharge Plan Discharge Clinical Impression: Vertigo, Weakness Patient Disposition: Home, Self-Care Instructions: Vertigo (ED) Additional Instructions: Your blood work was unremarkable which is reassuring. Your symptoms were most likely caused by your vertigo. If you get severe vertigo again, take your meclizine 12.5 mg orally and if your symptoms persist then you can take a 2nd dose of meclizine 12.5 mg orally. Follow-up with your doctor in 2 days. Please return to the emergency department if your symptoms get worse or if you develop any symptoms that are concerning to you. Prescriptions: No Action oxycodone 5 mg tablet 5 mg PO Q8H PRN (Reason: pain) Qty: 25 0RF nystatin 100,000 unit/mL suspension 100,000 unit PO BID 7 Days Qty: 14 0RF Rx Instructions: administer 1/2 of dose in each side of the mouth/swish and swallow methocarbamol 500 mg tablet 1 tab PO TID PRN (Reason: muscle spasm) amitriptyline 25 mg tablet 1 tab PO BEDTIME ibuprofen 600 mg Tablet 600 mg PO TID diclofenac sodium 1 % gel 1 g topical BID docusate sodium [Colace] 100 mg capsule 100 mg PO BID Qty: 60 0RF ondansetron HCl [Zofran] 4 mg tablet 4 mg PO Q8H PRN (Reason: nausea and vomiting) Qty: 14 0RF cefuroxime axetil 250 mg tablet 250 mg PO BID Qty: 14 0RF levothyroxine 50 mcg tablet 50 mcg PO DAILY omeprazole 20 mg capsule,delayed release(DR/EC) 20 mg PO DAILY meclizine 12.5 mg tablet 12.5 mg PO DAILY PRN (Reason: Vertigo) albuterol sulfate 90 mcg/actuation HFA aerosol inhaler 2 puff inhalation Q4H PRN (Reason: wheezing) levetiracetam 500 mg tablet 500 mg PO BID mirtazapine 15 mg tablet 15 mg PO BEDTIME (DME) blood sugar diagnostic Strip See Rx Instructions .ROUTE .MEDSUPPLY Qty: 10 Rx Instructions: As directed lorazepam 1 mg tablet 1 mg PO DAILY PRN (Reason: Anxiety) dicyclomine 20 mg tablet 20 mg PO Q8H albuterol sulfate 2.5 mg /3 mL (0.083 %) solution for nebulization 2.5 mg inhalation Q4-6H PRN (Reason: Shortness Of Breath Or Wheezing)
[2022-08-16 02:32] LABS: MANUAL DIFF FLAG NO
[2022-08-16 02:33] LABS: Basophils Percent Auto 0.5 % (0-2); Eosinophils Absolute Auto 0.1 X10*3/uL (0.0-0.4); Eosinophils Percent Auto 0.6 % (0-4); Hematocrit 43.9 % (37.0-47.0); Hemoglobin 14.8 g/dl (12.0-16.0); Imm Gran Abs Auto 0.03 X10*3/uL (0.00-0.03); Imm Gran Pct Auto 0.4 % (0.0-0.4); Lymphocytes Absolute Auto 0.8 X10*3/uL (1.2-4.9); Lymphocytes Percent Auto 9.7 % (20-40); Mean Corpuscular HGB Conc 33.7 g/dl (31.0-35.0); Mean Corpuscular Hemoglobin 28.6 pg (27.0-33.0); Mean Corpuscular Volume 84.7 fL (80.0-98.0); Mean Platelet Volume 11.1 fL (9.4-12.3); Monocytes Absolute Auto 0.5 X10*3/uL (0.1-1.2); Monocytes Percent Auto 5.4 % (2-11); Neutrophils Absolute Auto 7.2 x10*3/uL (2.0-8.3); Neutrophils Percent Auto 83.4 % (45-73); Platelet Count 224 X10*3/uL (160-400); Red Blood Count 5.18 X10*6/uL (4.20-5.50); Red Cell Distribution Width 12.7 % (11.0-16.0); White Blood Count 8.6 X10*3/uL (4.8-10.8)
[2022-08-16] MEDS: 0.9 % Sodium Chloride 1,000 ML 999 ML IV (02:41)
[2022-08-16 02:52] LABS: Alanine Aminotransferase 17 U/L (0-31); Albumin Level 4.1 g/dL (3.5-5.0); Alkaline Phosphatase 72 U/L (39-117); Anion Gap 13 (12-20); Aspartate Amino Transferase 20 U/L (5-31); Bilirubin Total 0.4 mg/dL (0.0-1.0); Blood Urea Nitrogen 13 mg/dL (9-16); Calcium 9.4 mg/dL (8.4-10.2); Carbon Dioxide 24 mmol/L (22-29); Chloride 109 mmol/L (96-108); Creatinine Clr Calc Pharmacy 63.2; Estimated Glomerular Filt Rate > 60; Glucose Random 110 mg/dL (60-115); Sodium 141 mmol/L (135-145); Total Protein 6.8 g/dL (6.5-8.0)
[2022-08-16 02:55] VITALS: BP 138/68; PULSE 58; RESP 16; O2SAT 98
[2022-08-16] MEDS: ondansetron HCL 4 MG/2 ML VIAL IVPUSH (02:57)
[2022-08-16 03:01] LABS: Appearance Urine Clear; Color Urine Yellow; Glucose Urine UA Negative (Negative); Leukocyte Esterase Urine Trace (Negative); Nitrite Urine Negative (Negative); Specific Gravity - Urine 1.015 (1.005-1.025); UMIC TRIGGER UACC YES; Urine Blood Negative (Negative); Urine Ketones Negative (Negative); Urine Protein Negative (Neg-Trace)
[2022-08-16 03:43] LABS: Bacteria Urine None Seen (None Seen); Hyaline Casts Urine 0-2 /LPF (0-2); RBC Urine 0-2 /HPF (0-2); Squamous Epithelial Cell Urine 0-2 /HPF (0-2); WBC Urine 0-5 /HPF (0-5)
[2022-08-16 06:00] VITALS: BP 136/75; PULSE 66; RESP 13; TEMP 36.9; O2SAT 98
== END 2022-08-16 06:46 | disposition home or self-care (01) ==
PROVIDERS: Emergency Provider Emergency Medicine Emergency Medical Services
DX: R42 Dizziness and giddiness (principal); R11.0 Nausea; R53.1 Weakness; R94.31 Abnormal electrocardiogram [ECG] [EKG]; Z79.899 Other long term (current) drug therapy
CPT/HCPCS: 36415; 80053; 81001; 81003; 85025; 93005; 96361; 96374; 96375; 99285; J2405; J2550

== ENCOUNTER 2024-03-23 07:22 | Emergency (ER) | payer OTHER, SELFPAY ==
--- NOTE | 2024-03-23 07:35 | PC.NURSE ---
pt presented to ED w family member, when called back for triage, pt declined being seen. family member reports pt's recently and she has been having a hard time. offered to bring pt in for triage for resources, pt and family member declined electing to return home. pt denies SI/HI and feels safe to go home w family member..
== END 2024-03-23 07:54 | disposition left against medical advice (07) ==
PROVIDERS: Emergency Provider Student in an Organized Health Care Education/Training Program; PCP Internal Medicine
DX: R53.1 Weakness (principal); Z53.21 Procedure and treatment not carried out due to patient leaving prior to being seen by health care provider

== ENCOUNTER 2024-06-27 05:35 | Emergency (ER) | payer OTHER, SELFPAY ==
--- NOTE | ~2024-06-27 | XR_ITS ---
CLINICAL HISTORY: cough 1 view chest x-ray Comparison: CR/SR - XR CHEST 2V - 10/21/21 11:34 EDT Findings: No consolidation or effusion. Heart size is normal. No acute fracture. IMPRESSION: 1. No acute findings. This document has been electronically signed by: Martina Ramirez MD on 06/27/2024 06:18:57
[2024-06-27 05:38] VITALS: BP 135/87; PULSE 100; RESP 14; TEMP 37.4; O2SAT 95; BMI 32.1
[2024-06-27 07:12] LABS: MANUAL DIFF FLAG NO
[2024-06-27 07:15] LABS: Basophils Percent Auto 0.2 % (0-2); Eosinophils Percent Auto 0.2 % (0-4); Hematocrit 40.6 % (37.0-47.0); Hemoglobin 14.1 g/dl (12.0-16.0); Imm Gran Abs Auto 0.01 X10*3/uL (0.00-0.03); Imm Gran Pct Auto 0.2 % (0.0-0.4); Lymphocytes Absolute Auto 0.8 X10*3/uL (1.2-4.9); Lymphocytes Percent Auto 16.3 % (20-40); Mean Corpuscular HGB Conc 34.7 g/dl (31.0-35.0); Mean Corpuscular Hemoglobin 28.9 pg (27.0-33.0); Mean Corpuscular Volume 83.2 fL (80.0-98.0); Mean Platelet Volume 10.8 fL (9.4-12.3); Monocytes Absolute Auto 0.5 X10*3/uL (0.1-1.2); Monocytes Percent Auto 11.5 % (2-11); Neutrophils Absolute Auto 3.3 x10*3/uL (2.0-8.3); Neutrophils Percent Auto 71.6 % (45-73); Platelet Count 179 X10*3/uL (160-400); Red Blood Count 4.88 X10*6/uL (4.20-5.50); Red Cell Distribution Width 12.8 % (11.0-16.0); White Blood Count 4.6 X10*3/uL (4.8-10.8)
[2024-06-27 07:27] LABS: Alanine Aminotransferase 31 U/L (0-31); Albumin Level 3.9 g/dL (3.5-5.0); Alkaline Phosphatase 78 U/L (39-117); Anion Gap 11 (12-20); Aspartate Amino Transferase 33 U/L (5-31); Bilirubin Total 0.2 mg/dL (0.0-1.0); Blood Urea Nitrogen 8 mg/dL (9-16); Calcium 8.4 mg/dL (8.4-10.2); Carbon Dioxide 25 mmol/L (22-29); Chloride 109 mmol/L (96-108); Creatinine Clr Calc Pharmacy 60.3; Estimated Glomerular Filt Rate > 60; Glucose Random 101 mg/dL (60-115); Potassium 4.2 mmol/L (3.3-5.1); Sodium 141 mmol/L (135-145); Total Protein 7.1 g/dL (6.5-8.0)
--- NOTE | 2024-06-27 07:27 | ED.URI ---
HPI - URI/Sore Throat General Chief Complaint: Upper Respiratory Symptoms Stated Complaint: has a fever & nausea Time Seen by Provider: 06/27/24 07:04 History of Present Illness HPI Narrative: Patient 58 years old presents today with coughing upper respiratory symptoms generalized malaise. Fever up to 101 at home. Positive nausea feeling weak. Has a history of seizure feels very lightheaded but this is more chronic. Patient did not have a seizure today. Been taking her medications. She is from home. Related Data Home Medications ?Medication ?Instructions ?Recorded ?Confirmed albuterol sulfate 2.5 mg/3 mL 2.5 mg inhalation Q4-6H PRN 05/28/20 06/20/20 (0.083 %) solution for nebulization Shortness Of Breath Or Wheezing albuterol sulfate 90 mcg/actuation 2 puff inhalation Q4H PRN wheezing 05/28/20 06/20/20 aerosol inhaler blood sugar diagnostic #10 ea 05/28/20 06/20/20 dicyclomine 20 mg tablet 20 mg PO Q8H 05/28/20 06/20/20 levetiracetam 500 mg tablet 500 mg PO BID 05/28/20 06/20/20 levothyroxine 50 mcg tablet 50 mcg PO DAILY 05/28/20 06/20/20 lorazepam 1 mg tablet 1 mg PO DAILY PRN Anxiety 05/28/20 06/20/20 meclizine 12.5 mg tablet 12.5 mg PO DAILY PRN Vertigo 05/28/20 06/20/20 mirtazapine 15 mg tablet 15 mg PO BEDTIME 05/28/20 06/20/20 omeprazole 20 mg capsule,delayed 20 mg PO DAILY 05/28/20 06/20/20 release amitriptyline 25 mg tablet 1 tab PO BEDTIME 06/05/20 06/20/20 diclofenac sodium 1 % topical gel 1 g topical BID 06/05/20 06/20/20 ibuprofen 600 mg tablet 600 mg PO TID 06/05/20 06/20/20 methocarbamol 500 mg tablet 1 tab PO TID PRN muscle spasm 06/05/20 06/20/20 Previous Rx's ?Medication ?Instructions ?Recorded ondansetron HCl 4 mg tablet 4 mg PO Q8H PRN nausea and 05/25/20 (Zofran) vomiting #14 tabs docusate sodium 100 mg capsule 100 mg PO BID #60 caps 06/05/20 (Colace) oxycodone 5 mg tablet 5 mg PO Q8H PRN pain #25 tabs 06/05/20 nystatin 100,000 unit/mL oral 100,000 unit PO BID 7 days #14 mL 06/11/20 suspension cefuroxime axetil 250 mg tablet 250 mg PO BID #14 tabs 01/25/21 ibuprofen 400 mg tablet 400 mg PO Q6H PRN pain #20 tabs 06/27/24 ondansetron 4 mg disintegrating 4 mg PO TID PRN nausea and 06/27/24 tablet vomiting 5 days #10 tabs Allergies Allergy/AdvReac Type Severity Reaction Status Date / Time Iodinated Contrast Media Allergy Severe Anaphylaxis Verified 06/27/24 05:44 [IV CONTRAST] moxifloxacin [From AVELOX] Allergy Severe ANAPHYLAXIS Verified 06/27/24 05:44 naproxen [NAPROXEN] Allergy Severe VOMITTING Verified 06/27/24 05:44 Review of Systems Review of Systems: Positive coughing congestion upper respiratory symptoms positive fever Yes all other systems are reviewed and are negative [facility] Past Medical History Attestation statement: The following information was validated with the patient. Medical History Difficulty maintaining body in lying position Neck pain Low back pain Nausea Panic attacks Anxiety and depression Shortness of breath Preoperative examination Hypothyroid GERD (gastroesophageal reflux disease) Meniere disease H/O multiple pulmonary nodules Asthma H/O vertigo Hypoglycemia Seizure disorder Surgical History Hx of cholecystectomy Hx of section Hx of appendectomy Family History Family History Father Hypertension High cholesterol Dementia Blind Mother Hypertension Diabetes mellitus High cholesterol Chronic kidney disease Sister Hypertension Diabetes mellitus Hx laparoscopic cholecystectomy Asthma Sister High cholesterol Hypertension FH: kidney cancer Sister Vertigo Brother No problems noted. Brother Brain tumor Epilepsia Daughter Hypoglycemia Vertigo Asthma Meniere disease Son Asthma Migraine Gastritis Social History Social History Alcohol intake: never Advance Directives: No Advance Directives Information Provided: Yes Do you have a plan to hurt others: No Plan Physical Exam Vital Signs: Vital Signs: Last Vital Signs Temp 99.1 F 06/27/24 07:37 Pulse 93 06/27/24 07:37 Resp 20 06/27/24 07:37 BP 128/69 06/27/24 07:37 Pulse Ox 99 06/27/24 07:37 O2 Del Method Room Air 06/27/24 07:37 BMI result Body Mass Index 32.1 Appearance: Alert. Oriented X3. No acute distress. Eyes: Pupils equal, round and reactive to light. ENT: Pharynx normal. Neck: Normal inspection. Neck supple. No lymph nodes noted. No crepitus CVS: Normal heart rate and rhythm. Pulses normal. Normal S1 and S2 Respiratory: No respiratory distress. Breath sounds normal. No Wheezing. No rales Abdomen: Soft and nontender. No rigidity. No distention. good BS x4 Skin: Skin warm and dry. Normal skin color. Normal skin turgor. Extremities: No lower extremity edema. Neurovascular intact to all extremities. No Lacerations. No Rash Neuro: Oriented X 3. No motor deficit. No sensory deficit. Moving all extermities. No slurred speech Medications Administered Generic Name Dose Route Start Last Admin Trade Name Freq PRN Reason Stop Dose Admin Sodium Chloride 1,000 mls @ 999 mls/hr 06/27/24 07:30 06/27/24 07:58 Ns IV 06/27/24 08:30 999 mls/hr .Q1H1M CHANO Administration Discontinued Medications Generic Name Dose Route Start Last Admin Trade Name Freq PRN Reason Stop Dose Admin Ondansetron HCl 4 mg 06/27/24 07:52 06/27/24 07:59 Ondansetron Hcl 4 Mg/2 Ml Vial IVPUSH 06/27/24 07:53 4 mg ONCE ONE Administration Medical Decision Making Medical Decision Making MDM Narrative: 58 years old presents today with coughing congestion upper respiratory symptoms for the last week. O2 sats 99% on room air. My interpretation patient's chest x-ray is grossly negative there is no evidence for pneumonia no pneumothorax I reviewed radiology's reading. Which was the same. Patient electrolytes was normal. Patient is white count was normal flu came back positive. Likely the cause of patient's coughing upper respiratory symptoms. Will discharge patient home patient's symptoms greater than 48 hours did not feel Tamiflu would help. Will discharge with follow-up symptomatic support with Zofran and Motrin Differential Diagnosis Differential Diagnoses: The differential diagnosis associated with the presentation includes Pneumonia, flu, COVID, RSV, viral illness Admission/Observation Consideration of admission/observation: Escalation of care including admission/observation considered Lab Data MDM Lab Attestation statement: I reviewed the patient's lab results. 06/27/24 07:09 06/27/24 07:09 Labs: Lab Results 06/27/24 Range/Units 07:09 WBC 4.6 L (4.8-10.8) X10*3/uL RBC 4.88 (4.20-5.50) X10*6/uL Hgb 14.1 (12.0-16.0) g/dl Hct 40.6 (37.0-47.0) % MCV 83.2 (80.0-98.0) fL MCH 28.9 (27.0-33.0) pg MCHC 34.7 (31.0-35.0) g/dl RDW 12.8 (11.0-16.0) % Plt Count 179 (160-400) X10*3/uL MPV 10.8 (9.4-12.3) fL Immature Gran % (Auto) 0.2 (0.0-0.4) % Neut % (Auto) 71.6 (45-73) % Lymph % (Auto) 16.3 L (20-40) % [place] % (Auto) 11.5 H (2-11) % Eos % (Auto) 0.2 (0-4) % Baso % (Auto) 0.2 (0-2) % Lymph # (Auto) 0.8 L (1.2-4.9) X10*3/uL [place] # (Auto) 0.5 (0.1-1.2) X10*3/uL Eos # (Auto) 0.0 (0.0-0.4) X10*3/uL Baso # (Auto) 0.0 (0.0-0.2) X10*3/uL Abs Immat Gran (auto) 0.01 (0.00-0.03) X10*3/uL Absolute Neuts (auto) 3.3 (2.0-8.3) x10*3/uL Absolute Nucleated RBC 0.000 (0.0-0.012) X10*3/uL Nucleated RBC % (auto) 0.0 (0.0-0.2) /100WBC Sodium 141 (135-145) mmol/L Potassium 4.2 (3.3-5.1) mmol/L Chloride 109 H (96-108) mmol/L Carbon Dioxide 25 (22-29) mmol/L Anion Gap 11 L (12-20) BUN 8 L (9-16) mg/dL Creatinine 0.88 (0.5-1.4) mg/dL Estim Creat Clear Calc 60.3 Estimated GFR > 60 Random Glucose 101 (60-115) mg/dL Calcium 8.4 D (8.4-10.2) mg/dL Total Bilirubin 0.2 (0.0-1.0) mg/dL AST 33 H (5-31) U/L ALT 31 (0-31) U/L Alkaline Phosphatase 78 (39-117) U/L Total Protein 7.1 (6.5-8.0) g/dL Albumin 3.9 (3.5-5.0) g/dL Influenza Type A (PCR) POSITIVE A (Negative) Influenza Type B (PCR) NEGATIVE (Negative) RSV RNA Qual (PCR) NEGATIVE (Negative) SARS-CoV-2 RNA (RT-PCR) NEGATIVE (Negative) Independent Interpretation I performed an independent interpretation of an: Plain X-Ray (Chest x-ray negative for pneumonia pneumothorax) Radiology Impression Discussion of test interpretation with radiology: I have reviewed the radiologist's reading. Prescription Management I considered prescription management with: Antibiotic (Not needed) Chronic Conditions History of seizure Discharge Plan Discharge Clinical Impression: Influenza Patient Disposition: Home, Self-Care Instructions: Influenza (ED) Prescriptions: New ibuprofen 400 mg tablet 400 mg PO Q6H PRN (Reason: pain) Qty: 20 0RF ondansetron 4 mg tablet,disintegrating 4 mg PO TID PRN (Reason: nausea and vomiting) 5 Days Qty: 10 0RF No Action oxycodone 5 mg tablet 5 mg PO Q8H PRN (Reason: pain) Qty: 25 0RF nystatin 100,000 unit/mL suspension 100,000 unit PO BID 7 Days Qty: 14 0RF Rx Instructions: administer 1/2 of dose in each side of the mouth/swish and swallow methocarbamol 500 mg tablet 1 tab PO TID PRN (Reason: muscle spasm) amitriptyline 25 mg tablet 1 tab PO BEDTIME ibuprofen 600 mg Tablet 600 mg PO TID diclofenac sodium 1 % gel 1 g topical BID docusate sodium [Colace] 100 mg capsule 100 mg PO BID Qty: 60 0RF ondansetron HCl [Zofran] 4 mg tablet 4 mg PO Q8H PRN (Reason: nausea and vomiting) Qty: 14 0RF cefuroxime axetil 250 mg tablet 250 mg PO BID Qty: 14 0RF levothyroxine 50 mcg tablet 50 mcg PO DAILY omeprazole 20 mg capsule,delayed release(DR/EC) 20 mg PO DAILY meclizine 12.5 mg tablet 12.5 mg PO DAILY PRN (Reason: Vertigo) albuterol sulfate 90 mcg/actuation HFA aerosol inhaler 2 puff inhalation Q4H PRN (Reason: wheezing) levetiracetam 500 mg tablet 500 mg PO BID mirtazapine 15 mg tablet 15 mg PO BEDTIME (DME) blood sugar diagnostic Strip See Rx Instructions .ROUTE .MEDSUPPLY Qty: 10 Rx Instructions: As directed lorazepam 1 mg tablet 1 mg PO DAILY PRN (Reason: Anxiety) dicyclomine 20 mg tablet 20 mg PO Q8H albuterol sulfate 2.5 mg /3 mL (0.083 %) solution for nebulization 2.5 mg inhalation Q4-6H PRN (Reason: Shortness Of Breath Or Wheezing) Referrals: Meir Cason III, MD [Primary Care Provider] - 06/29/24 Print Language: Austrian
[2024-06-27 07:37] VITALS: BP 128/69; PULSE 93; RESP 20; TEMP 37.3; O2SAT 99
[2024-06-27 07:40] VITALS: O2SAT 99
[2024-06-27 07:52] LABS: Influenza A PCR POSITIVE (Negative); Influenza B PCR NEGATIVE (Negative); Resp Syncy Virus RNA Qual PCR NEGATIVE (Negative); SARS COV2 PCR INHOUSE NEGATIVE (Negative)
[2024-06-27] MEDS: 0.9 % Sodium Chloride 1,000 ML 999 ML IV (07:58)
[2024-06-27] MEDS: ondansetron HCL 4 MG/2 ML VIAL IVPUSH (07:59)
--- NOTE | 2024-06-27 09:10 | PC.NURSE ---
this nurse took over patient care from [facility] at 9am, per report pt finishing ivf and discharging. rr equal/non labored, family at bedside, plan of care ongoing
[2024-06-27 09:41] VITALS: BP 147/86; PULSE 20; RESP 20; TEMP 37; O2SAT 95
== END 2024-06-27 09:42 | disposition home or self-care (01) ==
PROVIDERS: Emergency Provider Emergency Medicine Emergency Medical Services; PCP Internal Medicine
DX: J10.1 Influenza due to other identified influenza virus with other respiratory manifestations (principal); R05.9 Cough, unspecified; R50.9 Fever, unspecified; R11.0 Nausea; Z79.899 Other long term (current) drug therapy
CPT/HCPCS: 0241U; 71045; 80053; 85025; 96374; 96375; 99284; J2405

== ENCOUNTER → 2024-06-27 05:45 | Outpatient (BNV) | payer OTHER, SELFPAY | PROVIDERS: PCP Internal Medicine; Visit Provider Radiology Diagnostic Radiology | DX: R05.9 Cough, unspecified (principal) | CPT/HCPCS: 71045 ==

== ENCOUNTER → 2025-01-03 16:00 | Outpatient (AMB) | payer OTHER, SELFPAY ==
--- NOTE | 2025-01-03 16:11 | A.OFFVIS_ITS ---
Intake Visit Reasons: 4m [phone] Allergies Iodinated Contrast Media (IV CONTRAST) Allergy (Severe, Verified 06/27/24 05:44) Anaphylaxis moxifloxacin (From AVELOX) Allergy (Severe, Verified 06/27/24 05:44) ANAPHYLAXIS naproxen (NAPROXEN) Allergy (Severe, Verified 06/27/24 05:44) VOMITTING Medication List - Last Reconciled 01/03/25 by Malena Mcdaniel MD albuterol sulfate 90 mcg/actuation 2 puffs inhalation Q4H PRN albuterol sulfate 2.5 mg inhalation Q4-6H PRN amitriptyline 1 tab PO BEDTIME blood sugar diagnostic As directed cefuroxime axetil 250 mg PO BID diclofenac sodium 1% 1 g topical BID dicyclomine 20 mg PO Q8H docusate sodium (Colace) 100 mg PO BID ibuprofen 600 mg PO TID ibuprofen 400 mg PO Q6H PRN levetiracetam 500 mg PO BID levothyroxine 50 mcg PO DAILY lorazepam 1 mg PO DAILY PRN 30 days meclizine 12.5 mg PO DAILY PRN methocarbamol 1 tab PO TID PRN mirtazapine 15 mg PO BEDTIME nystatin 100,000 units PO BID 7 days omeprazole 20 mg PO DAILY ondansetron 4 mg PO TID PRN 5 days ondansetron HCl (Zofran) 4 mg PO Q8H PRN oxycodone 5 mg PO Q8H PRN HPI Comments Details: 59 yr old woman with Sz disorder. C/o di zziness mostly lightheadedness. BP has been slight. Sleep on right makes her spin. No Sz recurrence. CT brain was done. ?No OAKES. More anxiety and depression and is cared for at home. She gets jerking x 2 episodes. minutes apart, after a while of being unconscious. Since then the right leg feels stiff and can't move and is not moving like a cramp. No further syncopal episodes. Has tinnitus with vertigo for 3-4 days. She has H/O Recurrent syncopal episodes with prolonged unresponsiveness. Can hear and understand but cannot respond. Last syncope in mid April 2014. On 03/09/14 syncope in from low sugar nausea and vertigo. Rare dizziness. She has episodic vertigo for the last 5 years. She tried some vestibular rehabilitation therapy and that made her worse. She doesn't think she has lost any hearing. Whistling sounds in both ears. Has pulsatile tinnitus in left ear on lying down. [facility] Medical History Difficulty maintaining body in lying position Neck pain Low back pain Nausea Panic attacks Anxiety and depression Shortness of breath Preoperative examination Hypothyroid GERD (gastroesophageal reflux disease) Meniere disease H/O multiple pulmonary nodules Asthma H/O vertigo Hypoglycemia Seizure disorder Surgical History Hx of cholecystectomy Hx of section Hx of appendectomy Family History Father Hypertension High cholesterol Dementia Blind Mother Hypertension Diabetes mellitus High cholesterol Chronic kidney disease Sister Hypertension Diabetes mellitus Hx laparoscopic cholecystectomy Asthma Sister High cholesterol Hypertension FH: kidney cancer Sister Vertigo Brother No problems noted. Brother Brain tumor Epilepsia Daughter Hypoglycemia Vertigo Asthma Meniere disease Son Asthma Migraine Gastritis Social History Alcohol intake: never Assessment & Plan Assessment & Plan (1) Seizure disorder: Comment: last seizure 2 years ago, sees Dr Mcdaniel Code(s): G40.909 - Epilepsy, unspecified, not intractable, without status epilepticus Category: Medical (2) H/O vertigo: Comment: meclizine , Vestibular therapy. MRI brain Code(s): Z87.898 - Personal history of other specified conditions Category: Medical Plan meclizine , Vestibular therapy. MRI brain Orders: Orders MR head/brain w con 3 Weeks G40.909 - Epilepsy, unspecified, not intractable, without status epilepticus, Z87.898 - Personal history of other specified conditions PT Evaluation and Treatment Today Z87.898 - Personal history of other specified conditions Coding Level of Care Code Tele Est Pt Level 4 (77480) Diagnoses Seizure disorder G40.909 H/O vertigo Z87.898
--- OUTSIDE RECORDS SUMMARY | 2025-01-03 18:01 | XMS_ITS ---
Author Name [facility] Organization Unknown Care Team Organization Name Specialty Phone Email Start Date End Da te [facility]NA[facility] Primary [facility] 02/17/2022 4
--- OUTSIDE RECORDS SUMMARY | 2025-01-03 18:01 | XMS_ITS | Clinical Summary ---
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 Active atorvastatin (LIPITOR) 10 mg tablet Take 1 Tablet by mouth daily. Active levETIRAcetam (KEPPRA) 500 mg tablet Take 500 mg by mouth 2 times daily. Active albuterol HFA (Ventolin HFA) 90 mcg/actuation inhaler Inhale 1-2 puffs by mouth every 4 (four) hours if needed for wheezing or shortness of breath. 6.7 each 5 Active LORazepam (ATIVAN) 1 mg tablet TAKE 1 TABLET BY MOUTH ONCE A DAY NEEDED. 30 DAYS SUPPLY 4 Active amitriptyline (ELAVIL) 25 mg tablet Take 1 tablet (25 mg total) by mouth. at bedtime for 30 days 4 Active diclofenac (VOLTAREN) 1 % topical gel Apply 2 g topically 4 (four) times a day. 30 g 1 5 Active levothyroxine (SYNTHROID, LEVOTHROID) 75 mcg tablet Take 1 tablet (75 mcg total) by mouth 1 (one) time each day before breakfast. 90 tablet 1 5 Active hydroCHLOROthia zide (HYDRODIURIL) 25 mg tablet TAKE 1 TABLET BY MOUTH EVERY DAY 90 tablet 1 5 Active omeprazole (PriLOSEC) [address] capsule TAKE 1 CAPSULE BY MOUTH EVERY DAY 90 capsule 1 5 Active FreeStyle Test test strip TEST FASTING BLOOD SUGAR 1 TIME DAILY 300 strip 1 5 Active meclizine (ANTIVERT) 12.5 mg tabletIndicatio ns:Vertigo Take 1 tablet (12.5 mg total) by mouth 3 (three) times a day if needed for dizziness. 60 tablet 5 10/06/19 26 Active diclofenac (VOLTAREN) 1 % topical gel Apply 2 g topically 4 (four) times a day. 60 g 1 5 Active cyclobenzaprine (FLEXERIL) 5 mg tablet TAKE 1 TABLET BY MOUTH AT BEDTIME NEEDED FOR MUSCLE SPASMS. 90 tablet 1 5 Active cholecalciferol (VITAMIN D-3) 50 mcg (2,000 unit) tablet Take 1 tablet (2,000 Units total) by mouth 1 (one) time each day. 90 tablet 1 5 Active Active Problems Problem Noted Date Diagnosed Date Vertigo 03/16/2024 Overview (03/16/2024): Dx in [place], no workup done, stable on antivert Low back pain 03/16/2024 Overview (03/16/2024): xray negative of stone, no ct scan Hematuria 03/16/2024 Fatty liver 02/06/2021 Overview (03/16/2024): 01/25/2021: seen on [facility] at [facility] for evaluation of right flank pain, liver enzymes unremarkable at that time Obesity (BMI 30.0-34.9) 01/01/2020 Seizure (CMS/HCC V24, CMS/HCC V28) 09/11/2019 Depression 06/14/2018 Wheezing 11/03/2017 Meniere's disease 07/09/2016 Hypothyroidism 03/14/2015 Heartburn 11/09/2013 Lung nodule 08/09/2013 Overview (03/16/2024): Need 1 year follow up in 07/2014. Abnormal CT of the abdomen 07/25/2013 Overview (03/16/2024): Not seen in repeat chest ct in 07/2013. Encounters Date Type Department Care Team Description 10/05/2024 11:44 AM EDT - 10/05/2024 11:59 PM EDT Hospital Encounter [address] [phone] Pain in both knees, unspecified chronicity Discharge Disposition: Home or Self Care 10/05/2024 11:44 AM EDT - 10/05/2024 11:59 PM EDT Hospital Encounter [address] [phone] Primary osteoarthritis of right hand Discharge Disposition: Home or Self Care 10/05/2024 11:00 AM EDT Office Visit Adult Medicine [address] [phone] Meir Cason MD Vertigo (Primary Dx); Hypothyroidism, unspecified type; High cholesterol; Pain in both knees, unspecified chronicity; Primary osteoarthritis of right hand; Seizure (CMS/HCC V24, CMS/HCC V28); Meniere's disease, unspecified laterality 10/05/2024 Telephone Adult Medicine [address] [phone] Meir Cason MD from Last 3 Months Immunizations Name Administration Dates Next Due Hepatitis B (Dreujqo-D-Kddxu , Recombivax HB-Adult) 19yo and older 01/02/2015,08/02/2014,07/02/2014 PPD Test 09/27/2013 Tdap Tetanus diptheria acell ular pertussis (Boostrix; Adacel) 7yo and older 10/17/2013 Surgical History Surgery Date Site/Laterality Comments APPENDECTOMY 1974 PROCEDURE: HISTORICAL APPENDECTOMY SECTION 1994 PROCEDURE: HISTORICAL CHOLECYSTECTOMY 06/05/2020 PROCEDURE: [place] LAPAROSCOPY SURG CHOLECYSTECTOMY Medical History Medical History Date Comments Vertigo 2008 DX:Vertigo; COMM ENT: Dx in [place], no workup done, stable on antivert Low back pain 2010 DX:Low back pain ; COMMENT: xray negative of stone, no ct scan Hematuria 2010 DX:Hematuria Heartburn 11/09/2013 DX:Heartburn Family History Medical History Relation Name Comments Colon cancer Aunt maternal dx 70s Lung cancer Brother 1 both brothers, smokers Hypertension Father Stroke Father age 72; alzheim ers Diabetes Mother Hypertension Mother Other: no [place] Other Other: colon problem Sister 50s; ty pe of prob unknown bleeding Relation Name Status Comments Aunt Brother 1 Brother 2 Alive Father Alive Mother Alive Other Sister Social History Tobacco Use Types Packs/Day Years Used Date Smoking Tobacco: Never Smokeless Tobacco: Never Alcohol Use Standard Drinks/Week Comments No 0 (1 standard drink = 0.6 oz pur e alcohol) Comments No Sex and Gender Information Value Date Recorded Sex Assigned at Female 04/03/2024 6:59 AM EST Legal Sex Female 12:59 AM EST Gender Identity Female 04/03/2024 6:59 AM EST Sexual Orientation Straight 04/03/2024 6: 59 AM EST Obstetrics History Last Filed Vital Signs Vital Sign Reading Time Taken Comments Blood Pressure 124/78 10/05/2024 10:59 AM EDT Pulse 76 10/05/2024 10:59 AM EDT Temperature 36.3 C (97.4 F) 10/05/2024 10:59 AM EDT Respiratory Rate 14 10/05/2024 10:59 AM EDT Oxygen Saturation 99% 10/05/2024 10:59 AM EDT Inhaled Oxygen Concentration - - Weight 76.7 kg (169 lb) 10/05/2024 10:59 AM EDT Height 152.4 cm (5') 10/05/2024 10:59 AM EDT Body Mass Index 33.01 10/05/2024 10:59 AM EDT Plan of Treatment Upcoming Encounters Date Type Department Care Team (Late st Contact Info) Description 04/16/2025 11:00 AM EST Office Visit Adult Medicine [address] [phone] Meir Cason MD [address] [place] [address] Health Maintenance Due Date Last Done Comments Breast Cancer Screening 1965 Pneumococcal Vaccine: 50+ Years (1 of 2 - PCV) 1984 Cervical Cancer Screening: P ap Smear 1986 Zoster Vaccines (1 of 2) 10/28/2015 Colorectal Cancer Screening: Stool Based Tests (FOBT/FIT) 03/21/2022 HIV Screening 03/21/2022 Social Influencers of Health Screening 03/21/2022 DTaP,Tdap,and Td Vaccines (2 - Td or Tdap) 10/18/2023 10/17/2013 Depression Screening 04/12/2024 COVID-19 Vaccine (1 - 2023-2 5 season) 2024 Influenza Vaccine (#1) 2024 Cholesterol Screening (Lipid Panel) 10/05/2029 10/05/2024, 06/05/2024, 05/27/2023 RSV Immunization Adult Patients (1 - 1-dose 75+ series) 2040 Hepatitis C Screening Completed 06/28/2014 Hepatitis B Vaccines Completed 01/02/2015, 08/02/2014, 07/02/2014 HIB Vaccines Aged Out No longer eligi ble based on patient's age to complete this topic HPV Vaccines Aged Out No longer eligi ble based on patient's age to complete this topic Hepatitis A Vaccines Aged Out No long er eligible based on patient's age to complete this topic IPV Vaccines Aged Out No longer eligi ble based on patient's age to complete this topic MMR Vaccines Aged Out No longer eligi ble based on patient's age to complete this topic Meningococcal ACWY Vaccine Aged Out N o longer eligible based on patient's age to complete this topic Meningococcal B Vaccine Aged Out No l onger eligible based on patient's age to complete this topic RSV Immunization Patients Under 20 months Aged Out No longer eligible b ased on patient's age to complete this topic Varicella Vaccines Aged Out No longer eligible based on patient's age to complete this topic Procedures Procedure Name Priority Date/Time Associated Diagnosis Comments CALCIUM Routine 12/15/2024 3:03 PM EDT Hypocalcemia VITAMIN D 25 HYDROXY Routine 12/15/2024 3:03 PM EDT Hypocalcemia PARATHYROID HORMONE INTACT Routine 12/15/2024 3:03 PM EDT Hypocalcemia THYROID STIMULATING HORMONE WITH REFLEX TO FREE T4 AND FREE T3 Routine 10/05/2024 12:07 PM EDT Hypothyroidism, unspecified type LIPID PANEL WITH REFLEX TO DIRECT LDL Routine 10/05/2024 12:07 PM EDT High cholesterol COMPREHENSIVE METABOLIC PANEL Routine 10/05/2024 12:07 PM EDT High cholesterol XR KNEE 4+ VIEWS BILAT Routine 10/05/2024 11:55 AM EDT Pain in both knees, unspecified chronicity XR HAND 3+ VIEWS RIGHT Routine 10/05/2024 11:55 AM EDT Primary osteoarthritis of right hand HEPATITIS C SCREENING Routine 06/28/2014 from Last 3 Months or Most Recently Relevant to Health Maintenance Results * (ABNORMAL) Vitamin D 25 hydroxy (12/15/2024 3:03 PM EDT) Vit D, 25-Hydroxy 27.5(L) 30.0 - 80.0 ng/mL LAB CHEMISTRY METHOD 12/15/2024 7:48 PM EDT [facility] Blood Venous blood specimen / Unknown Venipuncture / Unknown 12/15/2024 3:03 PM EDT 12/15/2024 3:03 PM EDT us Meir Cason MD LAB BLOOD ORDERABLES Final Resu lt [facility] [address] [place] [address], [place] [phone] * (ABNORMAL) Parathyroid hormone intact (12/15/2024 3:03 PM EDT) PTH 139.7(H) 18.5 - 88.0 pcg/mL LAB CHEMISTRY METHOD 12/15/2024 7:48 PM EDT [facility] Blood Venous blood specimen / Unknown Venipuncture / Unknown 12/15/2024 3:03 PM EDT 12/15/2024 3:03 PM EDT us Meir Cason MD LAB BLOOD ORDERABLES Final Resu lt [facility] [address] [place] [address], [place] [phone] * Calcium (12/15/2024 3:03 PM EDT) Calcium 8.8 8.5 - 10.5 mg/dL LAB CHEMISTRY METHOD 12/15/2024 6:33 PM EDT [facility] Blood Venous blood specimen / Unknown Venipuncture / Unknown 12/15/2024 3:03 PM EDT 12/15/2024 3:03 PM EDT us Meir Cason MD LAB BLOOD ORDERABLES Final Resu lt Performing Organization Address City/[facility]/ZIP Co de Phone Number [facility] [address] [place] [address], [place] [phone] * Thyroid stimulating hormone with reflex to free t4 and free t3 (10/05/2024 12:07 PM EDT) TSH 0.45 0.40 - 4.00 mcIU/mL LAB CHEMISTRY METHOD 10/05/2024 4:56 PM EDT [facility] Blood Venous blood specimen / Unknown Venipuncture / Unknown 10/05/2024 12:07 PM EDT 10/05/2024 12:07 PM EDT us Meir Cason MD LAB BLOOD ORDERABLES Final Resu lt Performing Organization Address City/[facility]/ZIP Co de Phone Number [facility] [address] [place] [address], [place] [phone] * (ABNORMAL) Lipid panel with reflex to direct LDL (10/05/2024 12:07 PM EDT) Cholesterol 200 0 - 200 mg/dL LAB CHEMISTRY METHOD 10/05/2024 4:19 PM EDT [facility] Triglycerides 141 0 - 150 mg/dL LAB CHEMISTRY METHOD 10/05/2024 4:19 PM EDT [facility] HDL 47 >=40 mg/dL LAB CHEMISTRY METHOD 10/05/2024 4:19 PM EDT [facility] LDL Calculated 125(H) 0 - 100 mg/dL LAB CHEMISTRY METHOD 10/05/2024 4:19 PM EDT [facility] VLDL Cholesterol Fahad 28.2 mg/dL LAB CHEMISTRY METHOD 10/05/2024 4:19 PM EDT [facility] Non HDL Chol. (LDL+VLDL) 153(H) <145 mg/dL LAB CHEMISTRY METHOD 10/05/2024 4:19 PM EDT [facility] Chol/HDL Ratio 4.3 0.0 - 4.4 LAB CHEMISTRY METHOD 10/05/2024 4:19 PM EDT [facility] Blood Venous blood specimen / Unknown Venipuncture / Unknown 10/05/2024 12:07 PM EDT 10/05/2024 12:07 PM EDT us Meir Cason MD LAB BLOOD ORDERABLES Final Resu lt [facility] [address] [place] [address], [place] [phone] * (ABNORMAL) Comprehensive metabolic panel (10/05/2024 12:07 PM EDT) Sodium 144 133 - 145 mmol/L LAB CHEMISTRY METHOD 10/05/2024 4:19 PM [facility] Potassium 4.3 3.5 - 5.5 mmol/L LAB CHEMISTRY METHOD 10/05/2024 4:19 PM [facility] Chloride 112(H) 96 - 110 mmol/L LAB CHEMISTRY METHOD 10/05/2024 4:19 PM [facility] CO2 27 21 - 32 mmol/L LAB CHEMISTRY METHOD 10/05/2024 4:19 PM [facility] Anion Gap 5 3 - 11 LAB CHEMISTRY METHOD 10/05/2024 4:19 PM [facility] Glucose 74 70 - 100 mg/dL LAB CHEMISTRY METHOD 10/05/2024 4:19 PM [facility] BUN 11 5 - 25 mg/dL LAB CHEMISTRY METHOD 10/05/2024 4:19 PM [facility] Creatinine 0.91 0.50 - 1.10 mg/dL LAB CHEMISTRY METHOD 10/05/2024 4:19 PM [facility] eGFR 73 >=60 mL/min/1. 73m2 LAB CHEMISTRY METHOD 10/05/2024 4:19 PM [facility] Comment:Calculation based on the Chronic Kidney Disease Epidemiology Collaboration (CKD-EPI) equation refit without adjustment for race. BUN/Creatinine Ratio 12.1 LAB CHEMISTRY METHOD 10/05/2024 4:19 PM [facility] Calcium 8.4(L) 8.5 - 10.5 mg/dL LAB CHEMISTRY METHOD 10/05/2024 4:19 PM [facility] AST (SGOT) 25 10 - 42 unit/L LAB CHEMISTRY METHOD 10/05/2024 4:19 PM [facility] ALT (SGPT) 45 10 - 60 unit/L LAB CHEMISTRY METHOD 10/05/2024 4:19 PM [facility] Alkaline Phosphatase 91 42 - 121 unit/L LAB CHEMISTRY METHOD 10/05/2024 4:19 PM EDT [facility] Total Protein 6.5 6.0 - 8.0 g/dL LAB CHEMISTRY METHOD 10/05/2024 4:19 PM EDT [facility] Albumin 3.6 3.2 - 5.0 g/dL LAB CHEMISTRY METHOD 10/05/2024 4:19 PM EDT [facility] Total Bilirubin 0.4 0.0 - 1.4 mg/dL LAB CHEMISTRY METHOD 10/05/2024 4:19 PM EDT [facility] Blood Venous blood specimen / Unknown Venipuncture / Unknown 10/05/2024 12:07 PM EDT 10/05/2024 12:07 PM EDT us Meir Cason MD LAB BLOOD ORDERABLES Final Resu lt [facility] [address] [place] [address], [place] [phone] * XR Knee 4+ Views bilat (10/05/2024 11:55 AM EDT) Anatomical Region Laterality Modality Lower Extremities, Knee Bilateral Radiogra phic Imaging 10/06/2024 6:31 AM EDT Impressions 10/06/2024 6:34 AM EDT Mild degenerative changes. POS - [id number] -------- FINAL REPORT -------- Dictated By: Graciela Trinidad Dictated Date: 10/06/2024 06:31 ET Assigned Physician: Graciela Trinidad Reviewed and Electronically Signed By: Graciela Trinidad Signed Date: 10/06/2024 06:34 ET Workstation ID: [id number] Transcribed By: Self Edit Transcribed Date: 10/06/2024 06:31 ET Narrative 10/06/2024 6:34 AM EDT EXAM: Bilateral knee x-ray HISTORY: Bilateral knee pain. COMPARISON: Left knee radiography 04/01/2020, bilateral knee radiography 12/20/2049 VIEWS: 4 views of both knees performed, AP view performed weightbearing. FINDINGS: Mild joint space narrowing in the medial compartments and patellofemoral joints. Minimal posterior patellar spurring bilaterally. No evidence of an acute fracture or malalignment. No destructive bone lesion. No joint effusions. Procedure Note Graciela Trinidad MD - 10/06/2024 EXAM: Bilateral knee x-ray HISTORY: Bilateral knee pain. COMPARISON: Left knee radiography 04/01/2020, bilateral knee radiography12/20/2049 VIEWS: 4 views of both knees performed, AP view performedweightbearing. FINDINGS: Mild joint space narrowing in the medial compartments and patellofemoraljoints. Minimal posterior patellar spurring bilaterally. No evidence of anacute fracture or malalignment. No destructive bone lesion. No jointeffusions. IMPRESSION: Mild degenerative changes. POS - [id number] -------- FINAL REPORT -------- Dictated By: Graciela Trinidad Dictated Date: 10/06/2024 06:31 ET Assigned Physician: Graciela Trinidad Reviewed and Electronically Signed By: Graciela Trinidad Signed Date: 10/06/2024 06:34 ET Workstation ID: [id number] Transcribed By: Self Edit Transcribed Date: 10/06/2024 06:31 ET us Meir Cason MD IMG XR PROCEDURES Final Result * XR Hand 3+ Views Right (10/05/2024 11:55 AM EDT) Anatomical Region Laterality Modality Upper Extremities, Hand [facility] 10/05/2024 10:3 8 PM EDT Impressions 10/05/2024 10:46 PM EDT Multifocal degenerative changes. POS - [id number] -------- FINAL REPORT -------- Dictated By: Graciela Trinidad Dictated Date: 10/05/2024 22:38 ET Assigned Physician: Graciela Trinidad Reviewed and Electronically Signed By: Graciela Trinidad Signed Date: 10/05/2024 22:46 ET Workstation ID: [id number] Transcribed By: Self Edit Transcribed Date: 10/05/2024 22:38 ET Narrative 10/05/2024 10:46 PM EDT EXAM: Right hand x-ray HISTORY: Right hand pain. COMPARISON: 06/05/2024 FINDINGS: 3 views were performed. Mild to moderate degenerative changes again noted at the fourth DIP joint. Milder degenerative changes at the second, third, and fifth DIP joints and IP joint are not significantly changed. Mild joint space narrowing at the fourth and fifth MCP joints. No evidence of an acute fracture or malalignment. No destructive bone lesion. No soft tissue calcifications. Procedure Note Graciela Trinidad MD - 10/05/2024 EXAM: Right hand x-ray HISTORY: Right hand pain. COMPARISON: 06/05/2024 FINDINGS: 3 views were performed. Mild to moderate degenerative changes again noted at the fourth DIP joint.Milder degenerative changes at the second, third, and fifth DIP joints andIP joint are not significantly changed. Mild joint space narrowing at thefourth and fifth MCP joints. No evidence of an acute fracture ormalalignment. No destructive bone lesion. No soft tissue calcifications. IMPRESSION: Multifocal degenerative changes. POS - [id number] -------- FINAL REPORT -------- Dictated By: Graciela Trinidad Dictated Date: 10/05/2024 22:38 ET Assigned Physician: Graciela Trinidad Reviewed and Electronically Signed By: Graciela Trinidad Signed Date: 10/05/2024 22:46 ET Workstation ID: [id number] Transcribed By: Self Edit Transcribed Date: 10/05/2024 22:38 ET Meir Cason MD IMG XR PROCEDURES Final Result * Hepatitis C Screening (06/28/2014) Hepatitis C Screening abstracted Historical Provider HEALTH MAINTENANCE Final Result from Last 3 Months or Most Recently Relevant to Health Maintenance Insurance [employer] Care Teams Nailhead Setter Relationship Specialty Start Date End Date Meir Cason MD [address] [place] [phone] PCP - General Internal Medicine 09/27/13
== END ==
LOC: HO.HSM 16:00
PROVIDERS: PCP Internal Medicine; Referring Provider Internal Medicine; Visit Provider Psychiatry & Neurology Neurology
DX: G40.909 Epilepsy, unspecified, not intractable, without status epilepticus (principal); Z87.898 Personal history of other specified conditions
CPT/HCPCS: 99214